=== PATIENT | male | born 1945 | race Caucasian/White ===

== ENCOUNTER 2021-09-03 22:31 | Emergency (ER) | payer MEDICARE, OTHER ==
[~2021-09-03] VITALS: Ht 190.5 cm; Wt 86.2 kg
--- NOTE | 2021-09-03 22:37 | PHYS DOC ---
Past History Past Medical History: Bronchitis, COPD Past Surgical History Facial Reconstruction- Skin lenny from chest General Adult EDM: Chief Complaint: SHORTNESS OF BREATH HPI: HPI: ".. We just moved up here from [place].. I ve had bronchitis.. COPD, and pneumonia before.. My grandson has Influ. A..." Patient is a 75 year old male who presents with above hx and complaints of dyspnea, cough, malaise, arthralgia, arthralgia, and shortness of breath. Patient has recently moved here from [place]. Patient has not gotten Covid vaccination. Patient has not gotten flu vaccination. Has not gotten a Pneumovax. Patient has had previous episodes of pneumonia and chronic bronchitis. Patient no longer smokes. Patient follows at [facility] for care. Pt has not smoked for years. Is exposed to Grandson who has Influ. A. Review of Systems: Review of Systems: Constitutional: Subjective fever or chills Eyes: Denies change in visual acuity HENT: Denies nasal congestion or sore throat Respiratory: Complaints of cough and wheezing Cardiovascular: Denies chest pain or edema GI: Denies abdominal pain, nausea, vomiting, bloody stools or diarrhea : Denies dysuria Musculoskeletal: Complaints of myalgia Integument: Denies rash Neurologic: Denies headache, focal weakness or sensory changes Endocrine: Denies polyuria or polydipsia Lymphatic: Denies swollen glands Psychiatric: Denies depression or anxiety Family History: Family History: Grandson has Influ. A Current Medications: Current Meds: See Nursing for Home meds Allergies: Allergies: No known drug allergies Physical Exam: PE: Constitutional: Moderate acute distress, non-toxic appearance. [] HENT: Normocephalic, old facial scars from recent reconstruction, bilateral external ears normal, oropharynx moist, no oral exudates, nose normal. [] Eyes: PERRLA, EOMI, conjunctiva normal, no discharge. [] Neck: Normal range of motion, no tenderness, supple, no stridor. [] Cardiovascular:Heart rate regular rhythm, no murmur [] PMI to left Lungs & Thorax: Bilateral breath sounds equal apex with scattered wheezes t hroughout on auscultation []. Chest wall scar from skin harvest Abdomen: Bowel sounds normal, soft, no tenderness, no masses, no pulsatile masses. [] Skin: Warm, dry, no erythema, no rash. Poor turgor Back: No tenderness, no CVA tenderness. [] Extremities: No tenderness, no cyanosis, no clubbing, ROM intact, no edema. Arthritic changes. No cording appreciated. Neurologic: Alert and oriented X 3, normal motor function, normal sensory function, no focal deficits noted. [] Psychologic: Affect normal, judgement normal, mood normal. [] EKG: EKG: My interpretation EKG shows sinus rhythm at 82 bpm. No acute morphology. Time of EKG is 2348 hrs. [] Radiology/Procedures: Radiology/Procedures: IMAGING REPORT Signed PATIENT: DARNELL STEARNS ACCOUNT: [id number] : 1945 LOCATION: ER AGE: 75 SEX: M EXAM STATUS: REG ER ORD. PHYSICIAN: DALLAS EVANS MD REASON: Chest pain, short of air PROCEDURE: CHEST PA & LATERAL EXAM: CHEST 2 VIEWS. HISTORY: Chest pain, shortness of breath. COMPARISON: Today's CT. FINDINGS: Frontal and lateral views of the chest are obtained. There are mild interstitial opacities in the left greater than right bases. Hyperinflation is consistent with chronic obstructive pulmonary disease. There is no pneumothorax or pleural effusion. The heart is not enlarged. IMPRESSION: 1. Refer to today's CT for description of a chronic atypical infectious process or aspiration. 2. Chronic obstructive pulmonary disease. Electronically signed by: Shahla Mike MD (09/04/2021 1:54 AM) [facility] DICTATED AND SIGNED BY: LUCY MIKE MD DATE: 09/04/21151 CC: DALLAS EVANS MD; PCP,NO ~MTH0 0 [][address] [address] IMAGING REPORT Signed PATIENT: DARNELL STEARNS ACCOUNT: [id number] : 1945 LOCATION: ER AGE: 75 SEX: M EXAM STATUS: REG ER ORD. PHYSICIAN: DALLAS EVANS MD REASON: Chest pain, short of air Omni 350 75cc PROCEDURE: CT ANGIOGRAPHY CHEST EXAM: CT ANGIOGRAPHY OF THE CHEST WITH AND WITHOUT CONTRAST. HISTORY: Chest pain, shortness of breath. TECHNIQUE: Computed tomographic angiography of the chest was performed before and after the intravenous administration of iodinated contrast. 3-D maximum intensity projections were also performed. One or more of the following individualized dose reduction techniques were utilized for this examination: 1. Automated exposure control. 2. Adjustment of the mA and/or kV according to patient size. 3. Use of iterative reconstruction technique. COMPARISON: None. FINDINGS: Images of the upper abdomen reveal a 10 mm cystic lesion within the pancreatic uncinate process. The pancreatic duct is dilated at 5 mm. No cause for distal obstruction is seen. The gallbladder is surgically absent. Diffuse hepatic steatosis is suspected. A 12 mm cyst in the left kidney appears benign. Bone windows reveal no suspicious lesions. No pulmonary emboli are identified. There is no aortic dissection or aneurysm. There are no pathologically enlarged mediastinal or axillary lymph nodes. There is no pleural or pericardial effusion. The heart is not enlarged. There are atherosclerotic calcifications of the coronary arteries. Mild nodular infiltrates in the bases may reflect aspiration or atypical pneumonia. There is a diffuse bronchial wall thickening. Centrilobular emphysema is moderate. There is pleural parenchymal scarring in the apices. There are lesser scattered nodular infiltrates in the upper lobes. IMPRESSION: 1. No pulmonary embolism. 2. Scattered nodular infiltrates may reflect aspiration or a chronic atypical infectious process. 3. Moderate centrilobular emphysema. Bronchial wall thickening is consistent with acute or chronic bronchitis. 4. 10 mm cystic lesion within the uncinate process suggesting an intraductal papillary mucinous neoplasm. MRCP with and without contrast could further evaluate if the diagnosis is not already known. 5. Diffuse hepatic steatosis Electronically signed by: Shahla Mike MD (09/04/2021 1:52 AM) [facility] DICTATED AND SIGNED BY: LUCY MIKE MD DATE: 09/04/21 014 CC: DALLAS EVANS MD; PCP,NO ~MTH0 0 Heart Score: C/O Chest Pain: No HEART Score for Chest Pain: HEART Score for Chest Pain Response (Comments) Value History Slighlty/Non-Suspicious 0 ECG Normal 0 Age > 65 2 Risk Factors 1 or 2 Risk Factors 1 Troponin < Normal Limit 0 Total 3 Risk Factors: Risk Factors: DM, Current or recent (<one month) smoker, HTN, HLP, family history of CAD, obesity. Risk Scores: Score 0 - 3: 2.5% MACE over next 6 weeks - Discharge Home Score 4 - 6: 20.3% MACE over next 6 weeks - Admit for Clinical Observation Score 7 - 10: 72.7% MACE over next 6 weeks - Early Invasive Strategies Course & Med Decision Making: Course & Med Decision Making Pertinent Labs and Imaging studies reviewed. (See chart for details) Patient use MDI 2 puffs 4 times a day. Take prednisone 50 mg a day for the next 5 days. Taking Zithromax 250 mg daily for the next 5 days. Use incentive sp irometry. Follow-up with primary care. Follow-up with pulmonary for right upper lobe lesion. Patient take Tamiflu 75 mg twice a day. Impression: 1. Emphysema/COPD exacerbation 2. Right upper lobe cystic lesion- Neoplasm? 3. Influenza A 4. Hyperkalemia potassium 5.4 5. Leukocytosis 13 6. Mild elevation D-dimer 0.88 [] Dragon Disclaimer: Dragon Disclaimer: This electronic medical record was generated, in whole or in part, using a voice recognition dictation system. Departure Departure: Referrals: PCP,NO (PCP) Scripts Oseltamivir Phosphate (TAMIFLU) 75 Mg Capsule 75 MG PO BID for bid for 5 Days, #10 CAP Prov: DALLAS EVANS MD 09/04/21 Azithromycin (ZITHROMAX) 250 Mg Tablet 250 MG PO DAILY for ANTI-BIOTIC for 5 Days, #5 TAB 0 Refills Prov: DALLAS EVANS MD 09/04/21 Prednisone (PREDNISONE) 50 Mg Tablet 50 MG PO DAILY for copd for 5 Days, #5 TAB Prov: DALLAS EVANS MD 09/04/21 Dragon Disclaimer This chart was dictated in whole or in part using Voice Recognition software in a busy, high-work load, and often noisy Emergency Department environment. It may contain unintended and wholly unrecognized errors or omissions. DALLAS EVANS MD Sep 03, 2021 22:37
[2021-09-03] MEDS ORDERED: ALBUTEROL SULFATE 8GM INHALER. INH ONE (23:00)
[2021-09-03] MEDS ORDERED: AZITHROMYCIN 250 MG TABLET. PO ONE (23:00)
[2021-09-03] MEDS ORDERED: methylPREDNISolone SOD SUCC PF 125 MG/2 ML VIAL. IV ONE (23:00)
[2021-09-03] MEDS ORDERED: IV RINGERS SOLUTION,LACTATED 1,000 ML IV SCH (23:00)
[2021-09-03] MEDS ORDERED: IOHEXOL 350 MG/ML 100 ML VIAL. IV ONE (23:15)
[2021-09-03] MEDS ORDERED: CONTRAST GIVEN. MC PRN (23:15)
[2021-09-03] MEDS ORDERED: IV NORMAL SALINE 50ML 50 ML ONE (23:41)
[2021-09-03] MEDS ORDERED: cefTRIAXone SODIUM 1 GM VIAL ONE (23:41)
[2021-09-03] MEDS ORDERED: OSELTAMIVIR 75 MG CAPSULE PO ONE (23:45)
[2021-09-03 23:46] LABS: BASO # 0.1 x10^3/uL (0.0-0.2); BASO % 1 % (0-3); EOS # 0.1 x10^3/uL (0.0-0.7); EOS % 1 % (0-3); HEMATOCRIT 43.8 % (39.0-53.0); HEMOGLOBIN 14.2 g/dL (13.0-17.5); LYMPH # 1.1 x10^3/uL (1.0-4.8); LYMPH % 9 % (24-48); MEAN CORPUSCULAR HEMOGLOBIN 29 pg (25-35); MEAN CORPUSCULAR HGB CONC 32 g/dL (31-37); MEAN CORPUSCULAR VOLUME 88 fL (79-100); MONO # 1.7 x10^3/uL (0.0-1.1); MONO % 13 % (0-9); NEUT % 77 % (31-73); PLATELET COUNT 205 x10^3/uL (140-400); RED BLOOD COUNT 4.99 x10^6/uL (4.30-5.70); RED CELL DISTRIBUTION WIDTH 14.6 % (11.5-14.5)
[2021-09-03 23:58] LABS: BACTERIA,URINE FEW /HPF (0-FEW); BILIRUBIN,URINE NEG (NEG); CLARITY,URINE CLEAR; COLOR,URINE YELLOW; GLUCOSE,URINE NEG (NEG); NITRITE,URINE NEG (NEG); RBC,URINE 0 /HPF (0-2); SQUAMOUS EPITHELIAL CELL,UR MOD /LPF; UROBILINOGEN,URINE 0.2 mg/dL (0.2 mg/dL)
[2021-09-03 23:59] LABS: CREATININE 1.4 mg/dL (0.7-1.3); GFR 49.1; POTASSIUM 5.4 mmol/L (3.5-5.1)
[2021-09-04 00:11] LABS: ALBUMIN 3.4 g/dL (3.4-5.0); ALBUMIN/GLOBULIN RATIO 1.1 (1.0-1.7); DIRECT BILIRUBIN 0.1 mg/dL (0.0-0.2); TOTAL BILIRUBIN 0.3 mg/dL (0.2-1.0); TOTAL PROTEIN 6.6 g/dL (6.4-8.2)
[2021-09-04 00:59] LABS: INFLUENZA B PATIENT NEGATIVE (NEGATIVE)
[2021-09-04 01:03] LABS: INFLUENZA A PATIENT POSITIVE (NEGATIVE)
[2021-09-04 01:11] VITALS: BP 112/83
--- NOTE | 2021-09-04 01:55 | RAD ---
EXAM: CT ANGIOGRAPHY OF THE CHEST WITH AND WITHOUT CONTRAST. HISTORY: Chest pain, shortness of breath. TECHNIQUE: Computed tomographic angiography of the chest was performed before and after the intraveno us administration of iodinated contrast. 3-D maximum intensity projections were also performed. One o r more of the following individualized dose reduction techniques were utilized for this examination: 1. Automated exposure control. 2. Adjustment of the mA and/or kV according to patient size. 3. Use of iterative reconstruction technique. COMPARISON: None. FINDINGS: Images of the upper abdomen reveal a 10 mm cystic lesion within the pancreatic uncinate pro cess. The pancreatic duct is dilated at 5 mm. No cause for distal obstruction is seen. The gallbladde r is surgically absent. Diffuse hepatic steatosis is suspected. A 12 mm cyst in the left kidney appea rs benign. Bone windows reveal no suspicious lesions. No pulmonary emboli are identified. There is no aortic dissection or aneurysm. There are no pathologically enlarged mediastinal or axillary lymph nodes. There is no pleural or mat cardial effusion. The heart is not enlarged. There are atherosclerotic calcifications of the coronary arteries. Mild nodular infiltrates in the bases may reflect aspiration or atypical pneumonia. There is a diffus e bronchial wall thickening. Centrilobular emphysema is moderate. There is pleural parenchymal scarri ng in the apices. There are lesser scattered nodular infiltrates in the upper lobes. IMPRESSION: 1. No pulmonary embolism. 2. Scattered nodular infiltrates may reflect aspiration or a chronic atypical infectious process. 3. Moderate centrilobular emphysema. Bronchial wall thickening is consistent with acute or chronic br onchitis. 4. 10 mm cystic lesion within the uncinate process suggesting an intraductal papillary mucinous neopl asm. MRCP with and without contrast could further evaluate if the diagnosis is not already known. 5. Diffuse hepatic steatosis Electronically signed by: Shahla Mike MD (09/04/2021 1:52 AM) [facility]
--- NOTE | 2021-09-04 01:56 | RAD ---
EXAM: CHEST 2 VIEWS. HISTORY: Chest pain, shortness of breath. COMPARISON: Today's CT. FINDINGS: Frontal and lateral views of the chest are obtained. There are mild interstitial opacities in the left greater than right bases. Hyperinflation is consist ent with chronic obstructive pulmonary disease. There is no pneumothorax or pleural effusion. The hea rt is not enlarged. IMPRESSION: 1. Refer to today's CT for description of a chronic atypical infectious process or aspiration. 2. Chronic obstructive pulmonary disease. Electronically signed by: Shahla Mike MD (09/04/2021 1:54 AM) [facility]
[2021-09-04] MEDS ORDERED: PRED50TA PO (02:41)
[2021-09-04] MEDS ORDERED: AZIT250T PO (02:41)
[2021-09-04] MEDS ORDERED: OSEL75CA PO (02:41)
--- NOTE | 2021-09-04 02:42 | EKG ---
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
== END 2021-09-04 03:09 | disposition home or self-care (01) ==
LOC: ER 22:31
DX: J44.1 Chronic obstructive pulmonary disease with (acute) exacerbation (principal); J98.4 Other disorders of lung; J10.1 Influenza due to other identified influenza virus with other respiratory manifestations; E87.5 Hyperkalemia; D72.829 Elevated white blood cell count, unspecified; R79.1 Abnormal coagulation profile; Z20.822 Contact with and (suspected) exposure to COVID-19
CPT/HCPCS: 71046; 71275; 80048; 80053; 80076; 81001; 82550; 83690; 83735; 83880; 84443; 84484; 85025; 85379; 85610; 85730; 87426; 87804; 93005; 94640; 96361; 96365; 96375; 99285; C9803; J0696; J2930; J7120; Q9967; U0003; 94664

== ENCOUNTER 2021-10-15 17:22 | Emergency (ER) | payer MEDICARE, OTHER ==
[~2021-10-15] VITALS: Ht 190.5 cm; Wt 86.0 kg
[~2021-10-15 17:22] MED LIST: AZIT250T PO; OSEL75CA PO; PRED50TA PO
[2021-10-15 17:29] VITALS: BP 153/79
--- NOTE | 2021-10-15 19:29 | RAD ---
XR CHEST 1V History: Reason: COPD, mucus increase, tightness in neck / Spl. Instructions: / History: Comparison: September 04, 2021 Findings: Hyperinflation. Mild reticular opacities bilaterally. No pleural effusion. No pneumothorax. Normal he art size. Impression: 1. Hyperinflation with mild reticular opacities, most likely chronic interstitial changes. Electronically signed by: James Starr DO (10/15/2021 7:27 PM) [facility]
[2021-10-15 19:37] LABS: INFLUENZA A PATIENT NEGATIVE (NEGATIVE); INFLUENZA B PATIENT NEGATIVE (NEGATIVE)
[2021-10-15] MEDS ORDERED: AZIT250T6 PO (19:40)
--- NOTE | 2021-10-15 19:41 | PHYS DOC ---
Past History Past Medical History: Bronchitis, COPD Additional Past Medical Histor: bladder cancer s/p resection (MARCOS URBAN) Past Surgical History: Cancer Surgery Additional Past Surgical Histo: partial cystectomy (MARCOS URBAN) Smoking: Quit Greater Than 1 Year Alcohol Use: None (MARCOS URBAN) General Adult EDM: Chief Complaint: OTHER COMPLAINTS HPI: HPI: Patient is a 76 year old male past medical history of COPD and bladder cancer status post partial cystectomy who presents with increased mucus that he feels is "stuck in his throat." Patient reports he used some Vicks nasal spray to help with nasal congestion, and almost immediately after felt something "drip in the back of his throat." Since that time, he feels like he has "a ball of phlegm or a booger" lodged in his throat. He states that coughing helps for a little bit, but the sensation comes back. Patient denies sore throat and shortness of breath. (MARCOS URBAN) Review of Systems: Review of Systems: Constitutional: Denies fever, chills or generalized weakness Eyes: Denies change in visual acuity, visual field deficits or discharge HENT: See HPI Respiratory: See HPI Cardiovascular: Denies chest pain, palpitations or edema GI: Denies abdominal pain, nausea, vomiting, bloody stools or diarrhea : Denies dysuria or hematuria Musculoskeletal: Denies back pain or joint pain Integument: Denies rash or other skin lesion Neurologic: Denies headache, focal weakness or sensory changes (MARCOS URBAN) Allergies: Allergies: Allergies Coded Allergies Type Severity Reaction Last Updated Verified No Known Drug Allergies 09/03/21 No (MARCOS URBAN) Physical Exam: PE: Constitutional: Well developed, well nourished, no acute distress, chronically ill appearance. HENT: Normocephalic, atraumatic, bilateral external ears normal, oropharynx moist, no oral exudates, no pharyngeal erythema, nose normal. Eyes: EOMI, conjunctiva normal, no discharge. Neck: Normal range of motion, no tenderness, supple, no stridor. Cardiovascular: Heart regular rate and rhythm. Lungs & Thorax: Bilateral breath sounds clear to auscultation, but diminished throughout. Skin: Warm, dry, no erythema, no rash, no cyanosis. Neurologic: Alert and oriented x4, no focal deficits noted. (MARCOS URBAN) Current Patient Data: Labs: Laboratory Tests Test 10/15/21 18:55 Influenza Type A (Rapid) Negative (NEGATIVE) Influenza Type B (Rapid) Negative (NEGATIVE) Vital Signs: Vital Signs Date Time Temp Pulse Resp B/P (MAP) Pulse Ox O2 Delivery O2 Flow Rate FiO2 10/15/21 17:29 97.7 80 18 153/79 (103) 98 Room Air (MARCOS URBAN) Radiology/Procedures: Radiology/Procedures: PROCEDURE: CHEST AP ONLY XR CHEST 1V History: Reason: COPD, mucus increase, tightness in neck / Spl. Instructions: / History: Comparison: September 04, 2021 Findings: Hyperinflation. Mild reticular opacities bilaterally. No pleural effusion. No pneumothorax. Normal heart size. Impression: 1. Hyperinflation with mild reticular opacities, most likely chronic interstitial changes. Electronically signed by: James Starr DO (10/15/2021 7:27 PM) [facility]DY (MARCOS URBAN) Heart Score: C/O Chest Pain: No (MARCOS URBAN) Course & Med Decision Making: Course & Med Decision Making Pertinent Labs and Imaging studies reviewed. (See chart for details) Patient is a 76-year-old male past medical history COPD who presents with nasal congestion and increased mucus, that he feels is stuck in his throat. Work-up will include a chest x-ray and influenza a and B swab. Patient refuses influenza a and B swab, stating "I know I don't have it." Test was deferred. Patient will be treated with dexamethasone, Z-Macario and instructed to use Mucinex at home. Patient asked if he could continue using nasal spray, which likely will help his congestion. All of his questions were answered. Return precautions were provided. Patient understands and is agreeable to discharge plan. (MARCOS URBAN) Course & Med Decision Making Did not see or evaluate patient. Did not discuss patient with PA. Agree with PAs work-up and disposition per note. (YANIRA MADERA MD) Dragon Disclaimer: Dragon Disclaimer: This electronic medical record was generated, in whole or in part, using a voice recognition dictation system. (MARCOS URBAN) Departure Departure: Impression: Primary Impression: Upper respiratory infection Qualified Codes: J00 - Acute nasopharyngitis [common cold] Additional Impression: COPD (chronic obstructive pulmonary disease) Qualified Codes: J44.1 - Chronic obstructive pulmonary disease with (acute) exacerbation Disposition: HOME / SELF CARE / HOMELESS Condition: IMPROVED Referrals: NOAH MAYER MD (PCP) Patient Instructions: Chronic Obstructive Pulmonary Disease, [id number] Additional Instructions: EMERGENCY DEPARTMENT GENERAL DISCHARGE INSTRUCTIONS Thank you for coming to [facility] (ED) today and trusting us with you care. We trust that you had a positive experience in our Emergency Department. If you wish to speak to the department management, you may call the director at [phone]. YOUR FOLLOW UP INSTRUCTIONS ARE FOLLOWS: 1. Follow up with your primary care doctor. If you do not have a primary doctor, please ask for a resource list of physicians or clinics that may be able to assist you with follow up care. 2. The emergency provider has interpreted your imaging studies, if any were ordered. The radiology clinical documentation specialist also reviewed them. If there is a change in the findings, you will be notified in 48 hours when at all possible. 3. If a lab test or culture has been done, your results will be reviewed and you will be notified if you need a change in treatment. 4. Follow instructions verbalized to you and refer to the printouts if needed. ADDITIONAL INSTRUCTIONS AND INFORMATION: 1. Your care today has been supervised by a physician who is specially trained in emergency care. Many problems require more than one evaluation for a complete diagnosis and treatment. We recommend that you schedule your follow up appointment as recommended to ensure complete treatment of you illness or injury. If you are unable to obtain follow up care and continue to have a problem, or if your condition worsens, we recommend that you return to the ED. 2. We are not able to safely determine your condition over the phone nor are we able to give sound medical advice over the phone. For these safety reasons, if you call for medical advice we will ask you to come to the ED for further evaluation. 3. If you have any questions regarding these discharge instructions please call the ED at [phone]. SAFETY INFORMATION: In the interest of safety, wellness, and injury prevention; we encourage you to wear your seat belt, if you smoke; quite smoking, and we encourage family to use a protective helmet for bicycling and other sporting events that present an increased risk for head injury. IF YOUR SYMPTOMS WORSEN OR NEW SYMPTOMS DEVELOP, OR YOU HAVE CONCERNS ABOUT YOUR CONDITION; OR IF YOUR CONDITION WORSENS WHILE YOU ARE WAITING FOR YOUR FOLLOW UP APPOINTMENT; EITHER CONTACT YOUR PRIMARY CARE DOCTOR, THE PHYSICIAN WHOSE NAME AND NUMBER YOU WERE GIVEN, OR RETURN TO THE ED IMMEDIATELY. Scripts Azithromycin (AZITHROMYCIN TABLET) 250 Mg Tablet 1 PKG PO DAILY for COPD exacerbation for 4 Days, #4 TAB 0 Refills 2 the first day followed by 1 for days 2-5 Prov: MARCOS URBAN 10/15/21 MARCOS URBAN Oct 15, 2021 19:41 YANIRA MADERA MD Oct 15, 2021 21:21
[2021-10-15] MEDS ORDERED: AZITHROMYCIN 250 MG TABLET. PO ONE (19:45)
[2021-10-15] MEDS ORDERED: DEXAMETHASONE 4 MG TABLET PO ONE (19:45)
== END 2021-10-15 20:10 | disposition home or self-care (01) ==
LOC: ER 17:22
DX: J44.1 Chronic obstructive pulmonary disease with (acute) exacerbation (principal); J00 Acute nasopharyngitis [common cold]; Z87.891 Personal history of nicotine dependence
CPT/HCPCS: 71045; 87428; 87804; 99284

== ENCOUNTER 2021-12-22 12:35 | Inpatient (IN) | payer MEDICARE, OTHER ==
[~2021-12-22] VITALS: Ht 190.5 cm; Wt 83.7 kg
[~2021-12-22 12:35] MED LIST changes: +AZIT250T6 PO
[2021-12-22 13:13] LABS: BACTERIA,URINE 0 /HPF (0-FEW); BARBITURATES NEG (NEG); BENZODIAZEPINES NEG (NEG); CANNABINOIDS NEG (NEG); CLARITY,URINE CLEAR; COCAINE NEG (NEG); COLOR,URINE YELLOW; GLUCOSE,URINE NEG (NEG); METHADONE NEG (NEG); NITRITE,URINE NEG (NEG); OPIATES NEG (NEG); PHENCYCLIDINE NEG (NEG); RBC,URINE 0 /HPF (0-2); UROBILINOGEN,URINE 0.2 mg/dL (0.2 mg/dL); WBC,URINE 0 /HPF (0-4)
[2021-12-22 13:14] LABS: AMPHETAMINE/METHAMPHETAMINE NEG (NEG)
[2021-12-22] MEDS ORDERED: IOHEXOL 350 MG/ML 100 ML VIAL. IV ONE ×2 (13:15→14:15)
[2021-12-22 13:20] LABS: BASO # 0.2 x10^3/uL (0.0-0.2); BASO % 2 % (0-3); EOS # 0.4 x10^3/uL (0.0-0.7); EOS % 5 % (0-3); HEMATOCRIT 43.4 % (39.0-53.0); HEMOGLOBIN 14.3 g/dL (13.0-17.5); LYMPH # 1.3 x10^3/uL (1.0-4.8); LYMPH % 15 % (24-48); MEAN CORPUSCULAR HEMOGLOBIN 29 pg (25-35); MEAN CORPUSCULAR HGB CONC 33 g/dL (31-37); MEAN CORPUSCULAR VOLUME 88 fL (79-100); MONO # 0.7 x10^3/uL (0.0-1.1); MONO % 9 % (0-9); NEUT % 70 % (31-73); PLATELET COUNT 211 x10^3/uL (140-400); RED BLOOD COUNT 4.93 x10^6/uL (4.30-5.70); WHITE BLOOD COUNT 8.5 x10^3/uL (4.0-11.0)
--- NOTE | 2021-12-22 13:21 | PHYS DOC ---
Past History Past Medical History: Bronchitis, COPD Additional Past Medical Histor: bladder cancer s/p resection (TARA BERRY APRN) Past Surgical History: Cancer Surgery Additional Past Surgical Histo: partial cystectomy (TARA BERRY APRN) Smoking: Quit Greater Than 1 Year Alcohol Use: None (TARA BERRY APRN) General Adult EDM: Chief Complaint: SYNCOPE HPI: HPI: Patient is a 76-year-old male who presents to the emergency department via EMS for near syncope. Patient reports that today he got up from sitting started to feel lightheaded and felt like he almost passed out. Patient denies any loss of consciousness. He reports that the dizziness lasted for approximately 5 to 10 minutes and then resolved. He reports that at that time he had some trouble finding words that lasted 5 minutes but resolved. He reports a chronic headache that is on the right frontal and occipital region. He states that he had imaging performed and they attributed his chronic headaches due to bone spurs on his neck. Patient is not having any lightheadedness currently. He denies shortness of breath, chest pain, nausea, vomiting. He reports he has chronic right eye blurring. He has history of hyperlipidemia, anxiety, A. fib, emphysema, TBI and GERD. Patient does not take any blood thinners for his A. fib. (TARA BERRY APRN) Review of Systems: Review of Systems: Respiratory: See HPI Cardiovascular: See HPI GI: See HPI Musculoskeletal: See HPI Neurologic: See HPI (TARA BERRY APRN) Current Medications: Current Meds: Current Medications Medications (Trade) Dose Ordered Sig/Suzette Start Time Stop Time Status Last Admin Dose Admin Iohexol (Omnipaque 350 Mg/ml) 100 ml 1X ONCE 12/22/21 13:15 12/22/21 13:16 (TARA BERRY APRN) Allergies: Allergies: Allergies Coded Allergies Type Severity Reaction Last Updated Verified No Known Drug Allergies 09/03/21 No (TARA BERRY APRN) Physical Exam: PE: Constitutional: Well developed, well nourished, no acute distress, non-toxic appearance. [] HENT: Normocephalic, atraumatic, bilateral external ears normal, oropharynx moist, no oral exudates, nose normal. [] Eyes: PERRL, 4 mm bilaterally, no horizontal nystagmus, EOMI, conjunctiva normal, no discharge. [] Neck: Normal range of motion, no tenderness, supple, no stridor. [] Cardiovascular:Heart rate regular rhythm, no murmur [] Lungs & Thorax: Bilateral breath sounds clear to auscultation [] Abdomen: Bowel sounds normal, soft, no tenderness, no masses, no pulsatile masses. [] Skin: Warm, dry, no erythema, no rash. [] Back: No tenderness, normal range of motion Extremities: No tenderness, no cyanosis, no clubbing, ROM intact, no edema. [] Neurologic: Alert and oriented X 3, normal motor function, normal sensory function, no focal deficits noted, patient moving all 4 extremities, no pronator drift, no limb ataxia, no slurred speech, no facial droop. [] Psychologic: Affect normal, judgement normal, mood normal. [] (TARA BERRY APRN) Current Patient Data: Labs: Laboratory Tests Test 12/22/21 12:45 Urine Collection Type Clean catch Urine Color Yellow Urine Clarity Clear Urine pH 6.0 Urine Specific [place] 1.010 Urine Protein Neg (NEG-TRACE) Urine Glucose (UA) Neg mg/dL (NEG) Urine Ketones (Stick) Neg mg/dL (NEG) Urine Blood Neg (NEG) Urine Nitrite Neg (NEG) Urine Bilirubin Neg (NEG) Urine Urobilinogen Dipstick 0.2 mg/dL (0.2 mg/dL) Urine Leukocyte Esterase Neg (NEG) Urine RBC 0 /HPF (0-2) Urine WBC 0 /HPF (0-4) Urine Squamous Epithelial Cells None /LPF Urine Bacteria 0 /HPF (0-FEW) Urine Opiates Screen Neg (NEG) Urine Methadone Screen Neg (NEG) Urine Barbiturates Neg (NEG) Urine Phencyclidine Screen Neg (NEG) Urine Amphetamine/Methamphetamine Neg (NEG) Urine Benzodiazepines Screen Neg (NEG) Urine Cocaine Screen Neg (NEG) Urine Cannabinoids Screen Neg (NEG) Urine Ethyl Alcohol Neg (NEG) Vital Signs: Vital Signs Date Time Temp Pulse Resp B/P (MAP) Pulse Ox O2 Delivery O2 Flow Rate FiO2 12/22/21 12:39 97.6 67 17 120/84 (96) 98 Room Air (TARA BERRY APRN) EKG: EKG: EKG performed by ER staff at 1250 shows sinus rhythm with a rate of 62, there is elevation in lead II and lead III which is comparable to previous EKG. EKG was examined by Dr. Padgett reported that he has early repolarization. No STEMI (TARA BERRY APRN) Radiology/Procedures: Radiology/Procedures: []STATUS: REG ERORD. PHYSICIAN: TARA BERRY APRN REASON: syncope PROCEDURE: CT HEAD WO CONTRAST CT HEAD INDICATION: Reason: syncope / Spl. Instructions: / History: COMPARISON: None Available. Exposure: One or more of the following individualized dose reduction techniques were utilized for this examination: 1. Automated exposure control 2. Adjustment of the mA and/or kV according to patient size 3. Use of iterative reconstruction technique TECHNIQUE: 5 mm contiguous axial images were obtained from the skull base to the vertex in both bone and soft tissue algorithm. FINDINGS: No abnormal attenuation within the brain parenchyma. No evidence of acute intracranial hemorrhage. No extra-axial fluid collections. No mass effect or midline shift. Ventricular size is appropriate. Basal ci sterns are patent. No fractures identified.Sanchez-white differentiation is preserved.Globes and orbits are within normal limits. Paranasal sinuses and mastoid air cells are clear. IMPRESSION: No acute intracranial findings. Electronically signed by: Luigi Moreno MD (12/22/2021 2:43 PM) [id number] DICTATED AND SIGNED BY: LUIGI MORENO MD DATE: 12/22/211436 CC: NOAH MAYER MD; TARA BERRY APRN; KAYLI SALVADOR REASON: SOA NEAR SYNCOPE GIVEN 75 ML OMNI 350 PROCEDURE: CT ANGIOGRAPHY CHEST CTA CHEST History: Short of air, near syncope. Comparison: CTA chest 09/03/2021 Technique: CTA of the pulmonary arteries with intravenous contrast. 3-D postprocessing was performed. Findings: Pulmonary arteries: No pulmonary embolism. Aorta and great vessels: No aneurysm or dissection of the aortic arch or thoracic aorta. Mild atherosclerotic calcification. Thyroid: No significant abnormalities. Mediastinum and christiano: No mediastinal masses or adenopathy is seen. Esophagus: The visualized esophagus is normal. Heart: The heart is normal in size. There is no pericardial effusion. Moderate coronary artery calcification. Airways, Lungs, Pleura: Bilateral apical pleural-parenchymal scarring unchanged. Multifocal tree-in-bud nodular opacities involving the bilateral lower lobes, right middle and bilateral upper lobes, similar to comparison. New nodule left upper lobe measuring 6 mm (axial 50). Emphysematous change and bronchial wall thickening similar to comparison. Upper abdomen: Previously described pancreatic uncinate cystic mass is not included in the [id number]. Surgical clips in the gallbladder fossa. Osseous structures and soft tissues: Bilateral shoulder degenerative changes. He aled left lateral rib fractures. Impression: 1. No pulmonary embolism. 2. New pulmonary nodule measuring 6 mm in the left upper lobe. Recommend follow-up according to 2017 Fleischner Society Guidelines for solid pulmonary nodules: 6-8 mm: In a low risk patient, CT at 6-12 months, then consider CT at 18-24 months. In a high risk patient (history of smoking or other known risk f actors), CT at 6-[address] at 18-24 months. 3. Redemonstrated panlobular nodular tree-in-bud opacities greatest at the right lower lobe likely represents chronic infectious or inflammatory process. 4. Findings compatible with COPD. ------ Exposure: One or more of the following individualized dose reduction techniques were utilized for this examination: 1. Automated exposure control 2. Adjustment of the mA and/or kV according to patient size 3. Use of iterative reconstruction technique. Electronically signed by: Eusebio Amado MD (12/22/2021 3:19 PM) [id number] DICTATED AND SIGNED BY: EUSEBIO AMADO MD DATE: 12/22/21 1510 CC: NOAH MAYER MD; TARA BERRY APRN; KAYLI SALVADOR DO ~ (TARA BERRY APRN) Heart Score: C/O Chest Pain: No Risk Factors: Risk Factors: DM, Current or recent (<one month) smoker, HTN, HLP, family history of CAD, obesity. Risk Scores: Score 0 - 3: 2.5% MACE over next 6 weeks - Discharge Home Score 4 - 6: 20.3% MACE over next 6 weeks - Admit for Clinical Observation Score 7 - 10: 72.7% MACE over next 6 weeks - Early Invasive Strategies (TARA BERRY APRN) Course & Med Decision Making: Course & Med Decision Making Pertinent Labs and Imaging studies reviewed. (See chart for details) [] Patient presents to the emergency department first possible syncopal episode. Patient is asymptomatic at this time. Work-up in the ER consisted of blood work including troponin and coags, UA with UDS CT imaging of head to rule out CVA and CT angio of chest as patient is complaining of syncope and on A. fib without any anticoagulation to rule out pulmonary embolism. Patient's lab work is unremarkable. He had a negative troponin and serial troponins were ordered. UA and UDS were negative. CT imaging of head showed no acute finding CT imaging of chest showed COPD changes. I would like to admit the patient for observation and neurology consultation as well as serial troponins. I discussed patient's case with Dr. Broussard who agreed to admit the patient under his services for syncope. I discussed findings with patient he is agreeable to admission. ER bridge orders placed at this time 1544. (TARA BERRY APRN) Dragon Disclaimer: Dragon Disclaimer: This electronic medical record was generated, in whole or in part, using a voice recognition dictation system. (TARA BERRY APRN) NIH Stroke Scale: NIH Stroke Scale Response (Comments) Value Level of Consciousness: 0 Alert/Responsive 0 LOC Questions: 0 Answers both correctly 0 LOC Commands: 0 Performs both tasks 0 Best Gaze: 0 Normal 0 Visual: 0 No visual loss 0 Facial Palsy: 0 Normal, symmetrical 0 Motor - Left Arm 0 No drift 0 Motor - Right Arm 0 No drift 0 Motor - Left Leg 0 No drift 0 Motor: Right Leg 0 No drift 0 Limb Ataxia: 0 Absent 0 Sensory: 0 No loss 0 Best Language: 0 Normal 0 Dysathria: 0 Normal 0 Total 0 Departure Departure: Impression: Primary Impression: Syncope Qualified Codes: R55 - Syncope and collapse Disposition: ADMITTED INPATIENT Admitting Physician: Vic Duffy (TARA BERRY APRN) Condition: GOOD Referrals: NOAH MAYER MD (PCP) Attending Signature Attending Signature I have reviewed the PA/RESPIRATORY THERAPY ASSISTANT's note and plan of care. I was available for consultation as needed during the patient's visit in the emergency department. I agree with the clinical impression, plan, and disposition. (KAYLI SALVADOR DO) TARA BERRY APRN Dec 22, 2021 13:21 KAYLI SALVADOR DO Dec 23, 2021 10:47
[2021-12-22 14:09] LABS: CALCIUM 9.5 mg/dL (8.5-10.1); CREATININE 1.3 mg/dL (0.7-1.3); GFR 53.4; POTASSIUM 4.5 mmol/L (3.5-5.1)
[2021-12-22 14:15] LABS: ALBUMIN 3.7 g/dL (3.4-5.0); ALBUMIN/GLOBULIN RATIO 1.2 (1.0-1.7); TOTAL BILIRUBIN 0.5 mg/dL (0.2-1.0); TOTAL PROTEIN 6.9 g/dL (6.4-8.2)
[2021-12-22] MEDS ORDERED: CONTRAST GIVEN. MC PRN (14:30)
--- NOTE | 2021-12-22 14:46 | RAD ---
CT HEAD INDICATION: Reason: syncope / Spl. Instructions: / History: COMPARISON: None Available. Exposure: One or more of the following individualized dose reduction techniques were utilized for thi s examination: 1. Automated exposure control 2. Adjustment of the mA and/or kV according to patient size 3. Use of iterative reconstruction technique TECHNIQUE: 5 mm contiguous axial images were obtained from the skull base to the vertex in both bone and soft tissue algorithm. FINDINGS: No abnormal attenuation within the brain parenchyma. No evidence of acute intracranial hemorrhage. No extra-axial fluid collections. No mass effect or midline shift. Ventricular size is appropriate. Basal cisterns are patent. No fractures identified.Sanchez-white differentiation is preserved.Globes and orbits are within normal l imits. Paranasal sinuses and mastoid air cells are clear. IMPRESSION: No acute intracranial findings. Electronically signed by: Luigi Moreno MD (12/22/2021 2:43 PM) [id number]
--- NOTE | 2021-12-22 15:22 | RAD ---
CTA CHEST History: Short of air, near syncope. Comparison: CTA chest 09/03/2021 Technique: CTA of the pulmonary arteries with intravenous contrast. 3-D postprocessing was performed. Findings: Pulmonary arteries: No pulmonary embolism. Aorta and great vessels: No aneurysm or dissection of the aortic arch or thoracic aorta. Mild atheros clerotic calcification. Thyroid: No significant abnormalities. Mediastinum and christiano: No mediastinal masses or adenopathy is seen. Esophagus: The visualized esophagus is normal. Heart: The heart is normal in size. There is no pericardial effusion. Moderate coronary artery calcif ication. Airways, Lungs, Pleura: Bilateral apical pleural-parenchymal scarring unchanged. Multifocal tree-in-b ud nodular opacities involving the bilateral lower lobes, right middle and bilateral upper lobes, sim ilar to comparison. New nodule left upper lobe measuring 6 mm (axial 50). Emphysematous change and br onchial wall thickening similar to comparison. Upper abdomen: Previously described pancreatic uncinate cystic mass is not included in the field-of-v iew. Surgical clips in the gallbladder fossa. Osseous structures and soft tissues: Bilateral shoulder degenerative changes. Healed left lateral rib fractures. Impression: 1. No pulmonary embolism. 2. New pulmonary nodule measuring 6 mm in the left upper lobe. Recommend follow-up according to 2017 Fleischner Society Guidelines for solid pulmonary nodules: 6-8 mm: In a low risk patient, CT at 6-12 months, then consider CT at 18-24 months. In a high risk patient (history of smoking or other known risk factors), CT at 6-[address] at 18-24 months. 3. Redemonstrated panlobular nodular tree-in-bud opacities greatest at the right lower lobe likely r epresents chronic infectious or inflammatory process. 4. Findings compatible with COPD. ------ Exposure: One or more of the following individualized dose reduction techniques were utilized for thi s examination: 1. Automated exposure control 2. Adjustment of the mA and/or kV according to patient size 3. Use of iterative reconstruction technique. Electronically signed by: Eusebio Bautista MD (12/22/2021 3:19 PM) [id number]
--- NOTE | 2021-12-22 19:29 | EKG ---
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
[2021-12-22 19:30] VITALS: BP 131/80
[2021-12-22] MEDS ORDERED: NON FORMULARY ITEM (Ipratropium/Albuterol Sulfate (Combivent Respimat Inhal) 1 PUFF) INH SCH (21:00)
[2021-12-22] MEDS ORDERED: GUAI12003 PO (21:02)
[2021-12-22] MEDS ORDERED: BUSP10TA PO (21:02)
[2021-12-22] MEDS ORDERED: METH-560 PO (21:02)
[2021-12-22] MEDS ORDERED: ASPI-630 PO (21:02)
[2021-12-22] MEDS ORDERED: PANT40TA6 PO (21:02)
[2021-12-22] MEDS ORDERED: ATOR10TA60 PO (21:02)
[2021-12-22] MEDS ORDERED: MELO15TA23 PO (21:02)
[2021-12-22] MEDS ORDERED: MONT10TA80 PO (21:02)
[2021-12-22] MEDS ORDERED: FURO40TA4 PO (21:02)
[2021-12-22] MEDS ORDERED: DOCU100T5 PO (21:02)
[2021-12-22] MEDS ORDERED: METO-239 PO (21:02)
[2021-12-22] MEDS ORDERED: IPRA0.2S5 NEB (21:02)
[2021-12-22] MEDS ORDERED: FLUT50DI IH (21:02)
[2021-12-22] MEDS ORDERED: IPRA4AER INH (21:02)
[2021-12-22] MEDS ORDERED: CETI10TA16 PO (21:02)
[2021-12-22] MEDS: PANTOPRAZOLE 40 MG TABLET. PO SCH (21:30)
[2021-12-22] MEDS: BUDESONIDE 0.5 MG/2 ML NEBU NEB SCH (22:07)
[2021-12-22] MEDS: busPIRone 10 MG TABLET. PO SCH (22:08)
[2021-12-22] MEDS: ATORVASTATIN CALCIUM 10 MG TABLET. PO SCH (22:08)
[2021-12-22] MEDS: IPRATROPIUM BROMIDE 0.5 MG/2.5 ML NEBU. NEB SCH (22:08)
[2021-12-22] MEDS ORDERED: ACETAMINOPHEN 325 MG TABLET PO PRN (22:45)
[2021-12-22 23:00] VITALS: BP 125/73
[2021-12-23] VITALS (7 sets, daily range): BP systolic 106–118; BP diastolic 66–72
--- NOTE | 2021-12-23 01:42 | EKG ---
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
[2021-12-23 06:14] LABS: BASO # 0.1 x10^3/uL (0.0-0.2); BASO % 1 % (0-3); EOS # 0.4 x10^3/uL (0.0-0.7); EOS % 6 % (0-3); HEMATOCRIT 41.5 % (39.0-53.0); HEMOGLOBIN 13.6 g/dL (13.0-17.5); LYMPH # 1.5 x10^3/uL (1.0-4.8); LYMPH % 21 % (24-48); MEAN CORPUSCULAR HEMOGLOBIN 29 pg (25-35); MEAN CORPUSCULAR HGB CONC 33 g/dL (31-37); MEAN CORPUSCULAR VOLUME 88 fL (79-100); MONO # 0.8 x10^3/uL (0.0-1.1); MONO % 11 % (0-9); NEUT # 4.1 x10^3uL (1.8-7.7); NEUT % 60 % (31-73); PLATELET COUNT 197 x10^3/uL (140-400); RED CELL DISTRIBUTION WIDTH 14.1 % (11.5-14.5); WHITE BLOOD COUNT 6.9 x10^3/uL (4.0-11.0)
[2021-12-23 07:07] LABS: ALBUMIN 3.4 g/dL (3.4-5.0); ALBUMIN/GLOBULIN RATIO 1.4 (1.0-1.7); CALCIUM 9.1 mg/dL (8.5-10.1); CREATININE 1.4 mg/dL (0.7-1.3); POTASSIUM 4.5 mmol/L (3.5-5.1); TOTAL BILIRUBIN 0.4 mg/dL (0.2-1.0); TOTAL PROTEIN 5.9 g/dL (6.4-8.2)
[2021-12-23] MEDS ORDERED: FUROSEMIDE 40 MG TABLET PO SCH (09:00)
[2021-12-23] MEDS ORDERED: NON FORMULARY ITEM (Fluticasone Propionate (Flovent 50MCG Diskus) 50 MCG) IH SCH (09:00)
[2021-12-23] MEDS: DOCUSATE SODIUM 100 MG CAPSULE PO SCH ×2 (09:38→21:00)
[2021-12-23] MEDS: METHOCARBAMOL 500 MG TABLET PO SCH ×2 (09:38→20:59)
[2021-12-23] MEDS: MONTELUKAST 10 MG TABLET. PO SCH (09:39)
[2021-12-23] MEDS: ASPIRIN CHEWABLE 81 MG TABLET. PO SCH (09:39)
[2021-12-23] MEDS: MELOXICAM 15 MG TABLET. PO SCH (09:39)
[2021-12-23] MEDS: METOPROLOL SUCC 24HR ER 25 MG TAB.ER.24H. PO SCH (09:41)
[2021-12-23] MEDS: busPIRone 10 MG TABLET. PO SCH ×2 (09:41→21:00)
[2021-12-23] MEDS: CETIRIZINE HCL 10 MG TABLET PO SCH (09:41)
[2021-12-23] MEDS: PANTOPRAZOLE 40 MG TABLET. PO SCH ×2 (09:41→21:00)
[2021-12-23] MEDS: BUDESONIDE 0.5 MG/2 ML NEBU NEB SCH ×2 (09:41→21:45)
[2021-12-23] MEDS: IPRATROPIUM BROMIDE 0.5 MG/2.5 ML NEBU. NEB SCH ×4 (09:41→21:45)
--- NOTE | 2021-12-23 18:39 | HP ---
DATE OF SERVICE: 12/23/2021 ADMIT DATE: 12/22/2021 HISTORY OF PRESENT ILLNESS: The patient is a 76-year-old male patient who was brought to the Emergency Department via EMS for near syncope. The patient reports that he got up from sitting, started to feel lightheaded and felt like he almost passed out. He denied any loss of consciousness. He reported dizziness lasted for approximately 5-10 minutes and then resolved. He reports that at that time, he had also some trouble finding words, lasted 5 minutes but resolved. He also reported chronic headaches that is on the right frontal and occipital area. He states that he had imaging performed and they attributed his chronic headache to bone spurs in his neck. By the time he arrived to the Emergency Room, his lightheadedness has resolved. He denied any shortness of breath, chest pain, nausea, vomiting. Her reports he has chronic right eye blurring of vision. He is known to have atrial fibrillation diagnosed about 3 years ago while in [place], although he has never been on any blood thinner and is mostly on baby aspirin. He was extensively investigated in the Emergency Room, has had lab work and imaging studies. His lab work were mostly unremarkable. His cardiac enzyme, has 4 sets of troponin I high sensitivity, were all within normal range. He has an EKG and he was in sinus rhythm at a rate of 62 beats per minute. There is no ST segment elevation or depression. There is elevation actually in leads 2 and 3, which is comparable to previous EKGs. He had a CT scan of the head, which basically showed no abnormal attenuation within the brain parenchyma, no evidence of acute intracranial hemorrhage, no extraaxial fluid collection, no mass effect or midline shift. Ventricular size appropriate, basal cisterns are patent. No fracture is identified. Sanchez-white differentiation is preserved. Globes and orbits are within normal limits. Paranasal sinuses and mastoid air cells are clear. He has a CT angio of the chest, which showed no evidence of pulmonary emboli; new pulmonary nodules, 6 mm in the left upper lobe. He has also redemonstrated panlobular nodular tree-in-bud opacities, greatest at the right lower lobe, likely representing chronic infection, inflammatory process and finding compatible with COPD. The patient was admitted for further evaluation to consult the neurologist as well as the print developer. By the time I saw him, the patient has all his symptoms completely resolved. PAST MEDICAL HISTORY: Significant for traumatic brain injury while at [employer] in [place]. Since that time, he has blurring of vision in his right eye. He is known to have atrial fibrillation, hyperlipidemia, hypertension, chronic obstructive pulmonary disease, gastroesophageal reflux disease, obstructive sleep apnea. 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 He apparently was treated by his vp digital marketing social media and crm there for about 3 months. He was seen recently by vp digital marketing social media and crm at [facility]. The doctor's name is Addis Slater and she did a bronchoscopy and sent the bronchoalveolar lavage for culture and sensitivity. He was told that the fungal infection has recurred, but he has not seen the doctor yet that after she took the biopsies. PAST SURGICAL HISTORY: Significant for bilateral total hip arthroplasty, left total knee arthroplasty. He has bronchoscopy, transurethral resection of bladder tumor, bilateral cataract extraction, colonoscopy and esophagogastroduodenoscopy as well as cholecystectomy. ALLERGIES: HE IS ALLERGIC TO CODEINE AND SULFA DRUGS. MEDICATIONS: He is currently on following medications: He is on methocarbamol 500 mg, he takes 1-1/2 tablets twice a day. He is on Combivent 1 puff 4 times a day, cetirizine 10 mg once a day, aspirin 81 mg once a day, furosemide 40 mg twice a day. He is on Protonix 40 mg twice a day; metoprolol, probably succinate 25 mg once a day; Colace 100 mg, he takes two capsules twice a day. Meloxicam 7.5 mg, he takes 2 tablets once a day. Atorvastatin 10 mg at bedtime, Mucinex 600 mg twice a day. Flonase 1 spray to each nostril once a day. Singulair 10 mg at bedtime, buspirone 10 mg twice a day and ipratropium bromide by nebulizer 4 times a day. FAMILY HISTORY: He has one brother, older, has multiple medical problems and still alive. His father at age of 87 because of old age and mother at age of 79 and had diabetes mellitus and congestive heart failure. SOCIAL HISTORY: He is for the second time. He has 2 daughters from previous marriage. He quit smoking about 28 years ago, used to smoke 3.5 packs a day and smoked for 36 years. He quit drinking also long time ago. He does not use any drugs. 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 REVIEW OF SYSTEMS: As per history of present illness. PHYSICAL EXAMINATION: GENERAL: On arrival to the Emergency Room, he looked well and was clearly in no apparent respiratory distress. No pallor, jaundice, cyanosis, or thyromegaly. No jugular venous distention. No limb edema. VITAL SIGNS: His heart rate was 67, blood pressure was 120/84, temperature 97.6, respiratory rate was 17 and his oxygen saturation was 98% on room air. HEAD, EYES, EARS, NOSE, AND THROAT: Normocephalic, atraumatic. NECK: Supple. HEART: Normal first and second heart sounds. No gallop, rub or murmur. CHEST: Shows central trachea, equal bilateral chest expansion, air entry, vesicular breath sounds. I could not really appreciate any crepitation or rhonchi. ABDOMEN: Scaphoid, soft, nontender. NEUROLOGIC: He was awake, alert, responding appropriately. Cranial nerves intact. He moves extremities without difficulty. He was in fact able to ambulate without assistance or assistive devices. LABORATORY DATA: His lab work on arrival showed a white cell count of 8.5, hemoglobin 14, hematocrit 43, MCV 88 and platelet count 211,000 with the manual differential showed 70% polymorphs, 15% lymphocytes and 9% monocytes, 5% eosinophils. His chemistry showed a serum sodium 141, potassium 4.5, chloride 104, bicarbonate 31, anion gap of 6, BUN 21, creatinine 1.3. Estimated GFR was 53 mL per minute. His glucose 91, calcium was 9.5. Total bilirubin, AST, ALT, alkaline phosphatase were normal. His total protein 6.9, albumin was 3.7. His prothrombin time, INR and APTT were normal. His urinalysis was essentially unremarkable and toxic screen was negative. His coronavirus by PCR was not detectable. His CT scan of the head showed no abnormal attenuation within the brain parenchyma, no evidence of acute intracranial hemorrhage, no extraaxial fluid collection, no mass effect or midline shift. Ventricular size is appropriate. Basal cisterns are patent. No fracture identified. Sanchez-white differentiation is preserved. Globes and orbits are within normal limits. Paranasal sinuses and mastoid air cells are clear. CT angio showed that the patient has no pulmonary emboli and new pulmonary nodule ____ lobular nodular tree-in-bud opacities, greater at the right lower lobe, likely representing chronic inflammation or infection. He does have history of fungal infection in his lungs and other findings are compatible with COPD. ASSESSMENT AND PLAN: The patient was admitted. We will reconcile all his medications. I have consulted the neurologist as well as print developer. I would arrange for him to have bilateral carotid artery Doppler ultrasound and will decide the further management accordingly. HILARIO/JAIME DR: Kristy TID: [id number]
[2021-12-23] MEDS: ATORVASTATIN CALCIUM 10 MG TABLET. PO SCH (20:59)
[2021-12-24 05:00] VITALS: BP 126/73
[2021-12-24] MEDS: IPRATROPIUM BROMIDE 0.5 MG/2.5 ML NEBU. NEB SCH ×2 (06:29→09:15)
[2021-12-24] MEDS: BUDESONIDE 0.5 MG/2 ML NEBU NEB SCH ×2 (06:29→09:15)
[2021-12-24 06:52] LABS: CALCIUM 9.1 mg/dL (8.5-10.1); CREATININE 1.2 mg/dL (0.7-1.3); GFR 58.6; POTASSIUM 4.6 mmol/L (3.5-5.1)
[2021-12-24] MEDS: DOCUSATE SODIUM 100 MG CAPSULE PO SCH (07:30)
[2021-12-24] MEDS: PANTOPRAZOLE 40 MG TABLET. PO SCH (07:30)
[2021-12-24] MEDS: CETIRIZINE HCL 10 MG TABLET PO SCH (07:31)
[2021-12-24] MEDS: METHOCARBAMOL 500 MG TABLET PO SCH (07:31)
[2021-12-24] MEDS: MELOXICAM 15 MG TABLET. PO SCH (07:31)
[2021-12-24] MEDS: METOPROLOL SUCC 24HR ER 25 MG TAB.ER.24H. PO SCH (07:31)
[2021-12-24] MEDS: ASPIRIN CHEWABLE 81 MG TABLET. PO SCH (07:31)
[2021-12-24] MEDS: busPIRone 10 MG TABLET. PO SCH (07:31)
[2021-12-24] MEDS: MONTELUKAST 10 MG TABLET. PO SCH (07:41)
[2021-12-24 07:42] VITALS: BP 123/69
--- NOTE | 2021-12-24 08:26 | RAD ---
US DPLX CAROTID BILAT History: Reason: TIA with dysrthria and difficulty finding words / Spl. Instructions: / History: COMPARISON: None Technique: Duplex sonography of the cervical portion of both carotid arteries was performed. Real-trinity e grayscale, color flow Doppler, and Doppler spectral waveform analysis is performed. PQRS Compliance Statement - Stenosis calculations for CT, MR and conventional angiography are based u lennie measurement of the distal ICA diameter in accordance with the NASCET methodology. Stenosis calcu lations for carotid ultrasound studies are derived from validated velocity criteria which are known t o correlate with the NASCET methodology. Findings: Right side: Peak systolic flow velocity of the CCA is 103 cm/sec. Peak systolic flow velocity of the ICA is 103 cm/sec. The ICA/CCA ratio is 1.0. Peak end diastolic flow velocity of the ICA is 35 cm/sec. The peak systolic velocity of the ECA is 82 cm/sec. Mild atheromatous plaque. Left side: Peak systolic flow velocity of the CCA is 92 cm/sec. Peak systolic flow velocity of the ICA is 118 cm/sec. The ICA/CCA ratio is 1.1. Peak end diastolic flow velocity of the ICA is 45 cm/sec. Peak systolic flow velocity of the ECA is 109 cm/sec. Mild atheromatous plaque. Vertebral arteries: Bilateral vertebral arteries demonstrate antegrade flow. IMPRESSION: 1. No hemodynamically significant internal carotid artery stenosis. 2. Mild atheromatous plaque. Electronically signed by: James Starr DO (12/24/2021 8:24 AM) [id number]
--- NOTE | 2021-12-24 08:44 | PDOC2 ---
CARDIAC CONSULT DATE OF CONSULT DOS: DATE: 12/24/21 TIME: 08:42 REASON FOR CONSULT Reason for Consult near syncope REFERRING PHYSICIAN Referring Physician Sonia Connor APRN SOURCE Source: Chart review, Patient HPI History of Present Illness This is a 76 yo male who presented secondary to near syncope. Patient reports that he got up yesterday morning and was feeling well and did his usual morning routine of coffee, breakfast, and his morning meds. Later in the morning, reports he was sitting down and turned quickly to catch something that his great grandson was doing on the computer. Reports he instantly began feeling altered "blank". Was alert enough to tell grandson to go get his grandmother for help. She called EMS. He attempted to stand with her but became very dizzy, as is he could pass out so he sat back down. Reports felling "out of it" for about 45 mins. Does reports being altered with decreased mentation, but was able to recall what was occurring at the time. Reports that said he was "talking crazy". He denies any LOC or falls. Does have a history of AFIB. Is on metoprolol and ASA therapy. Does not follow with weatherization technician. Has not had any cardiac testing in multiple years. He denies any chest pain, palpitations, diaphoresis, or SOA. Is feeling well this morning. Does report having significant amount of stress at home and has been raising his great-grandson alongside his . 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 Cardiovascular: AFIB, HTN, hyperipidemia Pulmonary: COPD, Other (SHELLY) GI: GERD, Other (esophageal stricture) PAST SURGICAL HISTORY Past Surgical History: Cholecystectomy, Cataract Removal, Total hip replacement, Total knee replacement, Other (TURP) FAMILY HISTORY Family History: Diabetes, Heart Disease SOCIAL HISTORY Smoke: Quit ALCOHOL: none Drugs: None Lives: with Family CURRENT MEDICATIONS Current Medications Current Medications Iohexol (Omnipaque 350 Mg/ml) 100 ml 1X ONCE IV Last administered on 12/22/21at 14:18; Start 12/22/21 at 13:15; Stop 12/22/21 at 13:16; Status DC Iohexol (Omnipaque 350 Mg/ml) 100 ml 1X ONCE IV ; Start 12/22/21 at 14:15; Stop 12/22/21 at 14:16; Status DC Info (Do NOT chart on this entry -- for MONITORING) 1 each PRN DAILY PRN MC SEE COMMENTS; Start 12/22/21 at 14:30; Stop 12/24/21 at 14:29 Aspirin (Aspirin Chewable) 81 mg DAILY PO Last administered on 12/24/21 07:31; Start 12/23/21 at 09:00 Atorvastatin Calcium (Lipitor) 10 mg QHS PO Last administered on 12/23/21 20:59; Start 12/22/21 at 21:30 Buspirone HCl (Buspar) 10 mg BID PO Last administered on 12/24/21 07:31; Start 12/22/21 at 21:30 Cetirizine HCl (ZyrTEC) 10 mg DAILY PO Last administered on 12/24/21 07:31; Start 12/23/21 at 09:00 Furosemide (Lasix) 40 mg BID92 PO ; Start 12/23/21 at 09:00; Stop 12/22/21 at 22:03; Status DC Ipratropium [place]coe (Atrovent) 0.2 mg QID NEB Last administered on 12/24/21 06:29; Start 12/22/21 at 21:30 Meloxicam (Mobic) 15 mg DAILY PO Last administered on 12/24/21 07:31; Start 12/23/21 at 09:00 Metoprolol Succinate (Toprol Xl) 25 mg DAILY PO Last administered on 12/24/21 07:31; Start 12/23/21 at 09:00 Montelukast Sodium (Singulair) 10 mg DAILY PO Last administered on 12/24/21 07:41; Start 12/23/21 at 09:00 Pantoprazole Sodium (Protonix) 40 mg BID PO Last administered on 12/24/21 07:30; Start 12/22/21 at 21:30 Docusate Sodium (Colace) 200 mg BID PO Last administered on 12/24/21 07:30; Start 12/23/21 at 09:00 Non-Formulary Medication (Fluticasone Propionate (Flovent 50MCG Diskus)) 50 mcg DAILY IH ; Start 12/23/21 at 09:00; Status UNV Guaifenesin (Mucinex Er) 1,200 mg BID PO Last administered on 4/13/22at 07:29; Start 12/22/21 at 21:30 Non-Formulary Medication (Ipratropium/ Albuterol Sulfate (Combivent Respimat Inhal)) 1 puff QID INH ; Start 12/22/21 at 21:00; Status UNV Methocarbamol (Robaxin) 750 mg BID PO Last administered on 12/24/21at 07:31; Start 12/23/21 at 09:00 Budesonide (Pulmicort) 0.5 mg RTBID NEB Last administered on 12/24/21at 06:29; Start 12/22/21 at 21:30 Acetaminophen (Tylenol) 650 mg PRN Q6HRS PRN PO headache Last administered on 12/22/21at 22:51; Start 12/22/21 at 22:45 Fluticasone Propionate (Flonase) 2 spray DAILY NS Last administered on 12/24/21at 07:29; Start 12/24/21 at 09:00 Active Scripts Active Reported Ipratropium Roscoe 0.2 Mg/1 Ml Solution 1 Vial NEB QID Buspirone Hcl 10 Mg Tablet 10 Mg PO BID Singulair Tablet (Montelukast Sodium) 10 Mg Tablet 10 Mg PO DAILY Flovent 50MCG Diskus (Fluticasone Propionate) 50 Mcg Disk.w.dev 50 Mcg IH DAILY Mucinex (Guaifenesin) 1,200 Mg Tbmp.12hr 1,200 Mg PO BID Atorvastatin Calcium 10 Mg Tablet 10 Mg PO QHS Meloxicam 15 Mg Tablet 15 Mg PO DAILY Docusate Sodium 100 Mg Tablet 200 Mg PO BID Metoprolol Succinate ( Xl ) (Metoprolol Succinate) 25 Mg Tab.er.24h 25 Mg PO DAILY Pantoprazole Sodium 40 Mg Tablet.dr 40 Mg PO BID Furosemide 40 Mg Tablet 40 Mg PO BID92 Aspirin 81 Mg Tab.chew 81 Mg PO DAILY Cetirizine Hcl 10 Mg Tablet 10 Mg PO DAILY Combivent Respimat Inhal (Ipratropium/Albuterol Sulfate) 4 Gm Aer.w.adap 1 Puff INH QID Methocarbamol 750 Mg Tablet 750 Mg PO BID ALLERGIES Allergies: Coded Allergies: No Known Drug Allergies (Unverified , 09/03/21) ROS Review of Systems 14 point ROS conducted with pertinent positives noted above in HPI PHYSICAL EXAM General: Alert, Oriented X3, Cooperative, No acute distress HEENT: Atraumatic Lungs: Clear to auscultation Heart: Regular rate Abdomen: Soft, No tenderness Extremities: No edema, Normal pulses Skin: No breakdown Neuro: Normal speech, Sensation intact Psych/Mental Status: Mental status NL, Mood NL MUSCULOSKELETAL: Osteoarthritic changes both hands VITALS Vital Signs Vital Signs Date Time Temp Pulse Resp B/P (MAP) Pulse Ox O2 Delivery O2 Flow Rate FiO2 12/24/21 07:59 Room Air 12/24/21 07:42 97.8 69 20 123/69 (87) 95 LABS LABS Laboratory Tests Test 12/22/21 12:45 12/22/21 12:57 12/22/21 13:30 12/22/21 16:05 Urine Collection Type Clean catch Urine Color Yellow Urine Clarity Clear Urine pH 6.0 Urine Specific [place] 1.010 Urine Protein Neg (NEG-TRACE) Urine Glucose (UA) Neg mg/dL (NEG) Urine Ketones (Stick) Neg mg/dL (NEG) Urine Blood Neg (NEG) Urine Nitrite Neg (NEG) Urine Bilirubin Neg (NEG) Urine Urobilinogen Dipstick 0.2 mg/dL (0.2 mg/dL) Urine Leukocyte Esterase Neg (NEG) Urine RBC 0 /HPF (0-2) Urine WBC 0 /HPF (0-4) Urine Squamous Epithelial Cells None /LPF Urine Bacteria 0 /HPF (0-FEW) Urine Opiates Screen Neg (NEG) Urine Methadone Screen Neg (NEG) Urine Barbiturates Neg (NEG) Urine Phencyclidine Screen Neg (NEG) Urine Amphetamine/Methamphetamine Neg (NEG) Urine Benzodiazepines Screen Neg (NEG) Urine Cocaine Screen Neg (NEG) Urine Cannabinoids Screen Neg (NEG) Urine Ethyl Alcohol Neg (NEG) White Blood Count 8.5 x10^3/uL (4.0-11.0) Red Blood Count 4.93 x10^6/uL (4.30-5.70) Hemoglobin 14.3 g/dL (13.0-17.5) Hematocrit 43.4 % (39.0-53.0) Mean Corpuscular Volume 88 fL (79-100) Mean Corpuscular Hemoglobin 29 pg (25-35) Mean Corpuscular Hemoglobin Concent 33 g/dL (31-37) Red Cell Distribution Width 14.0 % (11.5-14.5) Platelet Count 211 x10^3/uL (140-400) Neutrophils (%) (Auto) 70 % (31-73) Lymphocytes (%) (Auto) 15 % (24-48) Monocytes (%) (Auto) 9 % (0-9) Eosinophils (%) (Auto) 5 % (0-3) Basophils (%) (Auto) 2 % (0-3) Neutrophils # (Auto) 6.0 x10^3uL (1.8-7.7) Lymphocytes # (Auto) 1.3 x10^3/uL (1.0-4.8) Monocytes # (Auto) 0.7 x10^3/uL (0.0-1.1) Eosinophils # (Auto) 0.4 x10^3/uL (0.0-0.7) Basophils # (Auto) 0.2 x10^3/uL (0.0-0.2) Prothrombin Time 9.9 SEC (9.4-11.4) Prothromb Time International Ratio 1.0 (0.9-1.1) Activated Partial Thromboplast Time 27 SEC (23-33) Troponin I High Sensitivity 14 ng/L (4-75) Sodium Level 141 mmol/L (136-145) Potassium Level 4.5 mmol/L (3.5-5.1) Chloride Level 104 mmol/L (98-107) Carbon Dioxide Level 31 mmol/L (21-32) Anion Gap 6 (6-14) Blood Urea Nitrogen 21 mg/dL (8-26) Creatinine 1.3 mg/dL (0.7-1.3) Estimated GFR (Cockcroft-Gault) 53.4 BUN/Creatinine Ratio 16 (6-20) Glucose Level 91 mg/dL (70-99) Calcium Level 9.5 mg/dL (8.5-10.1) Total Bilirubin 0.5 mg/dL (0.2-1.0) Aspartate Amino Transf (AST/SGOT) 25 U/L (15-37) Alanine Aminotransferase (ALT/SGPT) 28 U/L (16-63) Alkaline Phosphatase 105 U/L (46-116) Total Protein 6.9 g/dL (6.4-8.2) Albumin 3.7 g/dL (3.4-5.0) Albumin/Globulin Ratio 1.2 (1.0-1.7) Coronavirus (COVID-19)(PCR) Not detected (NOT DETECTD) SARS-CoV-2 Antigen (Rapid) Negative (NEGATIVE) Test 12/22/21 17:30 12/22/21 18:39 12/22/21 21:18 12/22/21 23:13 Troponin I High Sensitivity 12 ng/L (4-75) 15 ng/L (4-75) 13 ng/L (4-75) Glucose (Fingerstick) 203 mg/dL (70-99) Test 12/23/21 06:04 12/24/21 06:13 White Blood Count 6.9 x10^3/uL (4.0-11.0) Red Blood Count 4.70 x10^6/uL (4.30-5.70) Hemoglobin 13.6 g/dL (13.0-17.5) Hematocrit 41.5 % (39.0-53.0) Mean Corpuscular Volume 88 fL (79-100) Mean Corpuscular Hemoglobin 29 pg (25-35) Mean Corpuscular Hemoglobin Concent 33 g/dL (31-37) Red Cell Distribution Width 14.1 % (11.5-14.5) Platelet Count 197 x10^3/uL (140-400) Neutrophils (%) (Auto) 60 % (31-73) Lymphocytes (%) (Auto) 21 % (24-48) Monocytes (%) (Auto) 11 % (0-9) Eosinophils (%) (Auto) 6 % (0-3) Basophils (%) (Auto) 1 % (0-3) Neutrophils # (Auto) 4.1 x10^3uL (1.8-7.7) Lymphocytes # (Auto) 1.5 x10^3/uL (1.0-4.8) Monocytes # (Auto) 0.8 x10^3/uL (0.0-1.1) Eosinophils # (Auto) 0.4 x10^3/uL (0.0-0.7) Basophils # (Auto) 0.1 x10^3/uL (0.0-0.2) Sodium Level 144 mmol/L (136-145) 143 mmol/L (136-145) Potassium Level 4.5 mmol/L (3.5-5.1) 4.6 mmol/L (3.5-5.1) Chloride Level 105 mmol/L (98-107) 106 mmol/L (98-107) Carbon Dioxide Level 33 mmol/L (21-32) 30 mmol/L (21-32) Anion Gap 6 (6-14) 7 (6-14) Blood Urea Nitrogen 27 mg/dL (8-26) 22 mg/dL (8-26) Creatinine 1.4 mg/dL (0.7-1.3) 1.2 mg/dL (0.7-1.3) Estimated GFR (Cockcroft-Gault) 49.0 58.6 BUN/Creatinine Ratio 19 (6-20) Glucose Level 92 mg/dL (70-99) 97 mg/dL (70-99) Calcium Level 9.1 mg/dL (8.5-10.1) 9.1 mg/dL (8.5-10.1) Total Bilirubin 0.4 mg/dL (0.2-1.0) Aspartate Amino Transf (AST/SGOT) 21 U/L (15-37) Alanine Aminotransferase (ALT/SGPT) 26 U/L (16-63) Alkaline Phosphatase 103 U/L (46-116) Total Protein 5.9 g/dL (6.4-8.2) Albumin 3.4 g/dL (3.4-5.0) Albumin/Globulin Ratio 1.4 (1.0-1.7) ASSESSMENT/PLAN Assessment/Plan 1. Dizziness, near syncope; No LOC. CT head without acute findings. Carotid US without significant disease. Orthos negative. Etiology unclear. Neurology consults 2. Hypertension; controlled 3. Hyperlipidemia; statin 4. PAFIB; presently SR. On metoprolol for rate control 5. SHELLY with CPAP 6. H/o TBI 7. Increased life stressors Recommendations Continue ASA therapy Metoprolol for rate control Will arranged outpatient event monitor, echocardiogram, and follow up in our office with FELISHA Navarrete APRN Dec 24, 2021 08:44
[2021-12-24] MEDS ORDERED: FLUTICASONE 50MCG/NASAL SPRAY 16GM BOTTLE. NS SCH (09:00)
[2021-12-24 10:18] VITALS: BP 118/70
--- NOTE | 2021-12-24 14:40 | PN ---
DATE: 12/23/2021 SUBJECTIVE: The patient is sitting slightly propped up in bed and is in no apparent respiratory distress. He has no further episodes of dizziness or syncope. He is able to talk without any difficulty. I did not observe any difficulty finding words. I observed walking around without any assistance or assistive devices. PHYSICAL EXAMINATION: GENERAL: When I examined him this afternoon, he looked well and was clearly in no apparent respiratory distress. There was no pallor, jaundice, cyanosis or thyromegaly. No jugular venous distention. No limb edema. VITAL SIGNS: His heart rate was 63, blood pressure was 118/69, temperature 97.6, respiratory rate was 18 and oxygen saturation was 93% on room air. HEAD, EYES, EARS, NOSE, AND THROAT: Normocephalic, atraumatic. NECK: Supple. HEART: Normal first and second heart sounds. No gallop, rub or murmur. CHEST: Showed central trachea, equal bilateral chest expansion, air entry, vesicular breath sounds. No crepitation or rhonchi. ABDOMEN: Scaphoid, soft, nontender. NEUROLOGIC: He was awake, alert, responding appropriately. Cranial nerves intact. He moves extremities without difficulty, ambulates without assistance or assistive devices. His intake and output are incompletely recorded. LABORATORY DATA: Showed a white cell count of 9.6, hemoglobin 13.6, hematocrit 41, MCV 88 and platelet count of 197,000. His chemistry showed a serum sodium of 144, potassium 4.5, chloride 105, bicarbonate 33, anion gap of 6, BUN 27, creatinine 1.4. Estimated GFR was 49 mL per minute. His glucose was 92, calcium was 9.1. Total bilirubin, AST, ALT, alkaline phosphatase were normal. His total protein 5.9, albumin was 3.4. ASSESSMENT: 1. Transient ischemic attack, resolved. His symptoms have disappeared. He has no more aphasia. The patient has a multitude of medical problems including traumatic brain injury in 1968 while at [place]. 2. Hyperlipidemia. 3. Atrial fibrillation, rate controlled, not anticoagulated. 4. Bladder cancer, status post transurethral resection of the bladder cancer. 5. Chronic obstructive pulmonary disease. 6. Obstructive sleep apnea. 7. Esophageal stricture, status post esophageal dilatation. 8. Gastroesophageal reflux disease. 9. 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 He apparently was seen recently by Dr. Addis Slater, she is a master barber at [facility]. She apparently did a bronchoscopy and sent bronchoalveolar lavage, the result of which is still pending. PLAN: My plan is to continue all his medication. I did order carotid Doppler ultrasound and fasting lipid profile tomorrow. I did consult the plumbing service technician as well as the neurologist. DAVIDE DR: Kristy TID: [id number]
[2021-12-24 19:46] LABS: CHOLESTEROL/HDL RATIO 3.7
--- NOTE | 2021-12-24 21:52 | DS ---
ATTENDING PHYSICIAN: Dr. Duffy. FINAL DISCHARGE DIAGNOSES: 1. Near syncope, resolved. 2. History of traumatic brain injury in [place]. 3. Paroxysmal atrial fibrillation. 4. Hypertension. 5. Chronic obstructive pulmonary disease. 6. Gastroesophageal reflux disease. 7. Esophageal strictures. 8. Degenerative arthritis. 9. Cervical neck pain due to a stress tension headaches. HISTORY AND PHYSICAL: The patient, age 76, admitted through the ED with vague symptoms of lightheadedness or dizziness. He almost passed out. said he was speaking in a strange words. They were concerned about a stroke. He had a negative workup in the ED. He was admitted for further evaluation, Cardiology and Neurology consultation. PHYSICAL EXAMINATION: Please see the dictated note. PERTINENT LABORATORY AND X-RAY STUDIES: Admission hemoglobin was 14.3 g, white count 8500. Electrolytes all within normal range. Nonfasting blood sugar is 97. Transaminases were normal. Cardiac enzymes were negative for coronary ischemia. Urine drug screen was negative. Serology negative for coronavirus. COURSE IN THE HOSPITAL: The patient was admitted. He had formal Cardiology consultation as well as Neurology consultation. I reassured him, no stroke was identified. He was back to his baseline. Cardiology group recommended an outpatient echocardiogram and event monitor to be scheduled after discharge. On the second full hospital day, his vital signs were stable. Blood pressure was 123/69. He was afebrile. Lungs were clear. Cardiovascular exam shows regular heart tones. He was in a sinus rhythm. At this time, his atrial fibrillation was transient and paroxysmal. I do believe anticoagulation is necessary. He is already on an aspirin. He is therefore discharged home with no changes on his meds. He will continue his aspirin 81 mg daily, Lipitor, BuSpar, cetirizine, docusate, fluticasone spray, Lasix, guaifenesin, ipratropium, Robaxin p.r.n., metoprolol, Singulair, and Protonix dose unchanged. For now, I have asked him to hold the meloxicam because of side effects. The patient was then discharged from our hospital in stable condition with explicit written followup care. He will follow up with his PCP, Cardiology services was also set up for the event monitor as an outpatient. Total discharge time was [address]: Derik TID: [id number] CC: NOAH MAYER
--- NOTE | 2021-12-24 23:48 | CONS ---
DATE OF CONSULTATION: 12/22/2021 NEUROLOGICAL CONSULTATION REFERRING PHYSICIAN: Dr. Duffy. REASON FOR CONSULTATION: New-onset of headaches, dizziness and difficulty finding words. HISTORY OF PRESENT ILLNESS: This is a 76-year-old right-handed male who was admitted through Emergency Room after he presented with sudden onset of dizziness, described as lightheadedness and feeling as going to pass out. These symptoms lasted approximately 10 minutes, then resolved. He also reported very brief difficulty finding some words, but he denies slurred speech. He complains of chronic tension type headaches, but this morning, he started having severe occipital and frontal headaches without nausea or vomiting. He denies chest pain, shortness of breath at rest, dysphagia, dysarthria, weakness or paresthesia. 911 was activated and transferred the patient to Emergency Room where he was found asymptomatic and all his symptoms resolved. Initial nonenhanced head CT scan revealed no evidence of acute intracranial process, but mild enlargement of the ventricles and ____ atrophy. He had a chest CT scan, which revealed no evidence of pulmonary embolism. The patient was admitted for further evaluation and possible TIA. PAST MEDICAL HISTORY: Significant for atrial fibrillation diagnosed several years ago, COPD, hypertension, hyperlipidemia, sleep apnea, dysphagia due to esophageal stricture requiring dilatation, history of ____ fungal infection confirmed by bronchoscopy and biopsy and followed by bicycle fitter at [facility]. PAST SURGICAL HISTORY: Left total knee replacement, resection of the bladder tumor, cataract extraction and cholecystectomy. FAMILY HISTORY: Noncontributory; however, his father at age of 87 and his mother at age of 79 with history of diabetes mellitus and congestive heart failure. SOCIAL HISTORY: The patient is , has 2 daughters. He quit smoking long time ago; however, he was a heavy smoker and he quit drinking as well. He denies any illegal drug use. He is retired from the [employer]. CURRENT HOME MEDICATIONS: Include muscle relaxant as Robaxin 500 mg twice daily, Combivent inhaler, cetirizine 10 mg daily, aspirin 81 mg daily, furosemide 40 mg twice daily, Protonix for EGD 40 mg twice daily, metoprolol 25 mg once daily, Colace 100 mg twice daily p.r.n. for constipation, meloxicam 7.5 mg 2 tablets daily, Lipitor 10 mg at bedtime, Mucinex nasal spray twice daily and Singulair 10 mg at bedtime, buspirone 10 mg twice daily and nebulizer. REVIEW OF SYSTEMS: A 10-point review of system was performed as mentioned above in history of present illness, otherwise unremarkable. PHYSICAL EXAMINATION: GENERAL: Well-developed, well-nourished male, not in acute distress. He weighs 83.7 kilos. VITAL SIGNS: Blood pressure 116/70, respiratory rate 18, pulse is 71 and regular, temperature 97.7, oxygen saturation is 95% on room air. HEENT: Normocephalic, atraumatic, otherwise unremarkable. NECK: Supple, negative for carotid bruit, lymphadenopathy or thyromegaly. LUNGS: Clear to A and P, with diminished breath sounds, but no wheezing or rales. CARDIOVASCULAR: Regular rate and rhythm, normal S1, S2. There is no S3, S4 or murmur. ABDOMEN: Soft. Bowel sounds positive. EXTREMITIES: Negative for cyanosis, clubbing or pedal edema. NEUROLOGIC: Mental status: The patient is alert and oriented x3. The speech is fluent. There is no language dysfunction. Memory, judgment and abstract thinking are fair. The patient denies hallucination or delusion. Cranial nerves: Visual rendon are full. The pupils are reactive to light and accommodation. The extraocular movements are intact. There is no nystagmus. There is no facial motor or sensory deficits. Hearing is intact bilaterally. The palate is elevated symmetrically. Sternocleidomastoid muscles are powerful bilaterally. The patient shrugs his shoulders symmetrically, protrudes his tongue in the midline without fasciculation or atrophy. Motor exam: No focal muscle bulk was seen. The tone is normal. The strength is 5/5 throughout. Sensory examination revealed normal pinprick and light touch senses throughout. Deep tendon reflexes were symmetric and hypoactive with absent Achilles responses. Gait not tested. DIAGNOSTIC DATA: Head CT scan and chest CT angio revealed as mentioned above in history of present illness. LABORATORY DATA: CBC revealed white cells of 8.5 thousand, hemoglobin 14.3, hematocrit 43.4, platelet count 211,000. Chemistry revealed a sodium of 144, potassium 4.5, chloride 105, CO2 of 33, BUN 27, creatinine 1.4, glucose is 92, calcium 9.1. Liver enzymes are normal and troponin 1 high sensitivity is normal. Coagulation normal. Urinalysis, no evidence of urinary tract infection. Urine drug screen is negative as well. COVID PCR is not detected and rapid COVID is negative. IMPRESSION: 1. New-onset of lightheadedness, difficulty finding words and headaches, may represent a transient ischemic attack. 2. Multiple medical problems include hypertension, hyperlipidemia, chronic obstructive pulmonary disease, gastroesophageal reflux disease, tension type headaches, sleep apnea, history of atrial fibrillation, but EKG today revealed no evidence of cardiac arrhythmias or atrial fibrillation. The patient has not been on any on anticoagulants, but aspirin. RECOMMENDATIONS: 1. Continue with current management initiated by Dr. Duffy. 2. Agree with aspirin for now. 3. CT angio of the neck and head; however, he has been scheduled for bilateral carotid Doppler study and ultrasound. SUSSY/MARINA/BELL DR: [place] TID: [id number]
--- NOTE | 2021-12-25 01:53 | PN ---
SUBJECTIVE: The patient continues to have severe occipital headaches. He denies chest pain, shortness of breath or palpitation, dysarthria or dysphagia, weakness or paresthesia. OBJECTIVE: GENERAL: Well-developed, well-nourished male, not in acute distress. VITAL SIGNS: Blood pressure 123/68, respiratory rate 20, pulse is 69 and regular, oxygen saturation 95% on room air, temperature 97.8. HEENT: Normocephalic, atraumatic, otherwise unremarkable. NECK: Supple. Negative for carotid bruit, lymphadenopathy or thyromegaly. LUNGS: Clear to A and P. CARDIOVASCULAR: Regular rate and rhythm, normal S1, S2. There is no S3, S4 or murmur. ABDOMEN: Soft. Bowel sounds positive. EXTREMITIES: Negative for cyanosis, clubbing or edema. NEUROLOGIC: Mental status: The patient is alert and oriented x 3. Speech is fluent. There is no language dysfunction. Memory, judgment and abstracting thinking are normal. The patient denies hallucination or delusion. Cranial nerves are intact except for mild hearing loss bilaterally. Motor exam: No focal muscle bulk wasting. The tone is normal. The strength is 5/5 throughout. Sensory examination revealed normal pinprick, light touch, vibratory and position senses. Deep tendon reflexes were symmetric and active without pathology responses. Gait: The patient is able to stand up and walk in the [place]. IMPRESSION: 1. Possible transient ischemic attack. No recurrence. 2. Tension headaches and possible radiating from the cervical spine. 3. Multiple medical problems include history of atrial fibrillation, hypertension, hyperlipidemia, obstructive sleep apnea, on CPAP and severe arthritis of the hips bilaterally. RECOMMENDATIONS: 1. Continue with current management initiated by Dr. Duffy/Dr. Singh. 2. Cardiology consult regarding history of atrial fibrillation. 3. Physical therapy evaluation. SUSSY/MARIJA DR: SUSSY/dyana TID: [id number]
== END 2021-12-24 12:29 | disposition home or self-care (01) | DRG 69 ==
LOC: ER 12:35 → ER HOLD 15:39 → 1 SOUTH 18:43
PROVIDERS: ADMIT Internal Medicine; ATTEND Internal Medicine
DX: G45.9 Transient cerebral ischemic attack, unspecified (principal); I48.0 Paroxysmal atrial fibrillation; E78.5 Hyperlipidemia, unspecified; G47.33 Obstructive sleep apnea (adult) (pediatric); I10 Essential (primary) hypertension; J43.9 Emphysema, unspecified; K21.9 Gastro-esophageal reflux disease without esophagitis; K22.2 Esophageal obstruction; Z96.643 Presence of artificial hip joint, bilateral; Z96.652 Presence of left artificial knee joint; F41.9 Anxiety disorder, unspecified; M54.2 Cervicalgia; R91.1 Solitary pulmonary nodule; Z20.822 Contact with and (suspected) exposure to COVID-19; Z79.82 Long term (current) use of aspirin; Z79.899 Other long term (current) drug therapy; Z82.49 Family history of ischemic heart disease and other diseases of the circulatory system; Z83.3 Family history of diabetes mellitus; Z85.51 Personal history of malignant neoplasm of bladder; Z87.820 Personal history of traumatic brain injury; Z87.891 Personal history of nicotine dependence; Z98.41 Cataract extraction status, right eye; Z98.42 Cataract extraction status, left eye; Z90.49 Acquired absence of other specified parts of digestive tract; Z88.5 Allergy status to narcotic agent; Z88.2 Allergy status to sulfonamides
CPT/HCPCS: 36415; 70450; 71275; 80048; 80053; 80061; 80307; 81001; 82947; 84484; 85025; 85610; 85730; 87426; 93005; 93880; 94640; Q9967; U0003; 99285-25

== ENCOUNTER 2022-01-04 23:50 | Emergency (ER) | payer MEDICARE, OTHER ==
[~2022-01-04] VITALS: Ht 190.5 cm; Wt 83.7 kg
[~2022-01-04 23:50] MED LIST changes: +ASPI-630 PO; +ATOR10TA60 PO; +BUSP10TA PO; +CETI10TA16 PO; +DOCU100T5 PO; +FLUT50DI IH; +FURO40TA4 PO; +GUAI12003 PO; +IPRA0.2S5 NEB; +IPRA4AER INH; +MELO15TA23 PO; +METH-560 PO; +METO-239 PO; +MONT10TA80 PO; +PANT40TA6 PO
--- NOTE | 2022-01-05 00:14 | PHYS DOC ---
Past History Past Medical History: A-Fib, Bronchitis, COPD Additional Past Medical Histor: bladder cancer s/p resection (DALLAS EVANS MD) Past Surgical History: Cancer Surgery Additional Past Surgical Histo: partial cystectomy (DALLAS EVANS MD) Smoking: Quit Greater Than 1 Year Alcohol Use: None (DALLAS EVANS MD) General Adult EDM: Chief Complaint: GENERALIZED BODY ACHES HPI: HPI: ".. I ve been feel more short of breath.. coughing.... They recently diagnosis of Afib.. and they put this monitor on me to watch my heart the next couple weeks.. I was having some chest discomfort .. so I am here to get checked .. out..." Patient is a 76 year old male who presents with increased cough, malaise, arthralgia, myalgia and recent new diagnosis of A. fib. Patient did not get flu vaccination. Patient did not get COVID vaccination. Patient has not had a Pneumovax. Patient has known history of COPD. Patient has had previous episodes of syncope, history of traumatic brain injury in [place], paroxysmal atrial fibrillation, hypertension, gastro esophageal reflux, esophageal strictures, degenerative arthritis, cervical neuropathy, tension headaches, bronchitis, bladder cancer status postresection, pleural plaquing and scarring and over [id number] smoking history. Patient no longer smokes. Patient currently follows with Dr. Mayer for care. No recent travel. No specific ill contacts. Patient is not on any anticoagulation. (DALLAS EVANS MD) Review of Systems: Review of Systems: Constitutional: Denies fever or chills Eyes: Denies change in visual acuity HENT: Denies nasal congestion or sore throat Respiratory: Complains of cough and shortness of breath Cardiovascular: Complains of chest discomfort. Planes of recent diagnosis of A. fib. GI: Denies abdominal pain, nausea, vomiting, bloody stools or diarrhea : Denies dysuria Musculoskeletal: Chronic neck, back pain and joint pain Integument: Denies rash Neurologic: Denies headache, focal weakness or sensory changes Endocrine: Denies polyuria or polydipsia Lymphatic: Denies swollen glands Psychiatric: Denies depression or anxiety (DALLAS EVANS MD) Family History: Family History: Noncontributory to presentation (DALLAS EVANS MD) Current Medications: Current Meds: See nursing for home meds (DALLAS EVANS MD) Allergies: Allergies: Allergies Coded Allergies Type Severity Reaction Last Updated Verified No Known Drug Allergies 09/03/21 No (DALLAS EVANS MD) Physical Exam: PE: Constitutional: Moderate o acute distress, non-toxic appearance. [] HENT: Normocephalic, atraumatic, bilateral external ears normal, oropharynx moist, no oral exudates, nose swollen turbinates clear rhinorrhea. Eyes: PERRLA, EOMI, conjunctiva normal, no discharge. [] Neck: Normal range of motion, no tenderness, supple, no stridor. [] Cardiovascular: Irregular heart rate, irregular rhythm, no murmur, PMI to left. Bedside monitor shows a controlled ventricular rate in the 60s to 70s range. Irregular rate and rhythm overall morphology appears to be A. fib. Lungs & Thorax: Bilateral breath sounds equal at the apex with scattered wheezes on auscultation [. The] does have some basilar rubbing and crackles. Stick on cardiac loop monitor. Abdomen: Bowel sounds normal, soft, no tenderness, no masses, no pulsatile masses. Old surgery scars. Skin: Warm, dry, no erythema, no rash. Poor turgor Back: No tenderness, no CVA tenderness. [] Extremities: No tenderness, no cyanosis, no clubbing, ROM intact, no edema. Arthritic changes. No cording appreciated Neurologic: Alert and oriented X 3, moves all extremities on request, does have distal sensory,, no focal deficits noted. [] Psychologic: Affect anxious, judgement normal, mood normal. [] (DALLAS EVANS MD) EKG: EKG: My interpretation EKG shows a a fib rhythm irregular rate and rhythm. Ventricle rate of 67 bpm. There is some anterior lateral changes. But no findings of acute STEMI with contralateral changes. Time my interpretation EKG was approximately 0009 minutes [] (DALLAS EVANS MD) Radiology/Procedures: Radiology/Procedures: [address] [address] IMAGING REPORT Signed PATIENT: DARNELL STEARNS ACCOUNT: [id number] : 1945 LOCATION: ER AGE: 76 SEX: M EXAM STATUS: REG ER ORD. PHYSICIAN: DALLAS EVANS MD REASON: Dyspnea, Elevated D-dimer PROCEDURE: CT ANGIOGRAPHY CHEST Study: CT CHEST WITH CONTRAST - PULMONARY ANGIOGRAM History: Dyspnea. Elevated d-dimer. Pulmonary embolism. Comparison: 12/22/2021 Technique: Helical CT of the chest performed after the administration of intravenous contrast and timed for angiographic evaluation of the pulmonary arteries per PE protocol. Coronal and sagittal 3D MIP reformations were obtained. One or more of the following individualized dose reduction techniques were utilized for this examination: 1. Automated exposure control 2. Adjustment of the mA and/or kV according to patient size 3. Use of iterative reconstruction technique. Findings: Pulmonary Arteries: No main, lobar or segmental pulmonary embolism. Heart/Systemic Vasculature: Multifocal calcified and noncalcified atheromatous plaque with trivessel coronary artery involvement. No aortic aneurysm or dissection. Mediastinum: No lymphadenopathy by size criteria. Lungs: Moderate emphysema. Multifocal pleuroparenchymal scarring. A solid nodule anteriorly within the right upper lobe, image 67 series 7, has increased in size now measuring 4 mm compared to 2.5 mm. Previously described new 6 mm nodule anteriorly within the left upper lobe is unchanged, image 48 series 7. Numerous additional subcentimeter pre-existing nodules are without significant change. Scattered nodular infiltrates and faint groundglass attenuation also without significant change. No confluent airspace abnormality has developed in the interim. Scattered small airway opacification. No pleural effusion. Neck/Axilla/Body Wall: No axillary adenopathy. The visualized thyroid is unremarkable. Upper Abdomen: No significant interval change. Bones: Multifocal degenerative findings. No acute or aggressive abnormality. Miscellaneous: None. IMPRESSION: 1. No main, lobar or segmental pulmonary embolism. 2. Redemonstration of moderate emphysema and numerous subcentimeter pulmonary nodules. The vast majority of nodules are unchanged to include the previously described 6 mm nodule within the left upper lobe. A small nodule within the anterior aspect of the right upper lobe is minimally larger at 4 mm compared to 3 mm. Follow-up CT chest is recommended in 6 months. 3. Chronic observations to include calcific coronary artery disease. Electronically signed by: ANISH LOMBARDI MD (01/05/2022 6:17 AM) [facility] DICTATED AND SIGNED BY: ANISH LOMBARDI MD DATE: 01/05/22 06 CC: NOAH MAYER MD; DALLAS EVANS MD; EMMANUEL BLACKWOOD MD ~ [][place] [address] IMAGING REPORT Signed PATIENT: DARNELL STEARNS ACCOUNT: [id number] : 1945 LOCATION: ER AGE: 76 SEX: M EXAM STATUS: REG ER ORD. PHYSICIAN: DALLAS EVANS MD REASON: cough, congestion, cp PROCEDURE: CHEST AP ONLY Study: XR CHEST 1V Indication: Cough. Congestion. Chest pain. Comparison: CT chest 12/22/2021; most recent chest radiograph from 10/15/2021 Findings: The cardiomediastinal silhouette is within normal limits for size. Similar hilar configuration. Device hub projects over the left hemithorax. Emphysematous changes with some pleuroparenchymal scarring. No layering effusion or pneumothorax. Aortic calcific atherosclerosis. Impression: 1. No acute radiographic abnormality of the chest. 2. Emphysema with pleuroparenchymal scarring. Electronically signed by: ANISH LOMBARDI MD (01/05/2022 1:05 AM) [facility] DICTATED AND SIGNED BY: ANISH LOMBARDI MD DATE: 01/05/22102 CC: NOAH MAYER MD; DALLAS EVANS MD ~ (DALLAS EVANS MD) Heart Score: C/O Chest Pain: Yes HEART Score for Chest Pain: HEART Score for Chest Pain Response (Comments) Value History Moderately Suspicious 1 ECG Nonspecific Repolarizatio 1 Age > 65 2 Risk Factors 1 or 2 Risk Factors 1 Troponin < Normal Limit 0 Total 5 Risk Factors: Risk Factors: DM, Current or recent (<one month) smoker, HTN, HLP, family history of CAD, obesity. Risk Scores: Score 0 - 3: 2.5% MACE over next 6 weeks - Discharge Home Score 4 - 6: 20.3% MACE over next 6 weeks - Admit for Clinical Observation Score 7 - 10: 72.7% MACE over next 6 weeks - Early Invasive Strategies (DALLAS EVANS MD) C/O Chest Pain: No (EMMANUEL BLACKWOOD MD) Course & Med Decision Making: Course & Med Decision Making Pertinent Labs and Imaging studies reviewed. (See chart for details) Patient endorsed to at shift change pending CT results. May be candidate for outpatient Eliquis treatment. 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 MDIs 2 puffs 4 times a day, prednisone 50 mg a day. Impression : 1. Chest discomfort 2. A. fib-with controlled ventricular rate 3. COPD-mild exacerbation 4. Pleural plaquing and scarring 5. History of hypertension 6. History of GERD 7. History of degenerative arthritis 8. History of esophageal strictures 9. History of traumatic brain injury 10.Elevated D-dimer - this visit 1.07 Patient continue meds as directed. 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 Patient use his breathing treatments as previously directed. Patient did take a daily aspirin. [] (DALLAS EVANS MD) Course & Med Decision Making This is a 76-year-old male with dyspnea and a cough. Ultimately CT scan of the chest was done, this is negative for evidence of pulmonary embolism or infiltrate. On reassessment patient is breathing is much better. We will discharge him with prescriptions for an albuterol inhaler as well as 3 days of prednisone. He can follow-up with his traffic lieutenant, he is stable for discharge at this time. (EMMANUEL BLACKWOOD MD) Dragon Disclaimer: Dragon Disclaimer: This electronic medical record was generated, in whole or in part, using a voice recognition dictation system. (DALLAS EVANS MD) Departure Departure: Impression: Primary Impression: COPD exacerbation Disposition: HOME / SELF CARE / HOMELESS Condition: STABLE Referrals: NOAH MAYER MD (PCP) Patient Instructions: Chronic Obstructive Pulmonary Disease Exacerbation Scripts Albuterol Sulfate (PROAIR HFA INHALER) 8.5 Gm Hfa.aer.ad 2 PUFF INH PRN Q6HRS PRN for SHORTNESS OF BREATH for 7 Days, #1 INHALER 0 Refills Prov: EMMANUEL BLACKWOOD MD 01/05/22 Prednisone (PREDNISONE) 20 Mg Tablet 60 MG PO DAILY for bronchitis for 3 Days, #9 TAB Prov: EMMANUEL BLACKWOOD MD 01/05/22 Dragmarilynn Disclaimer This chart was dictated in whole or in part using Voice Recognition software in a busy, high-work load, and often noisy Emergency Department environment. It may contain unintended and wholly unrecognized errors or omissions. (DALLAS EVANS MD) Dragon Disclaimer This chart was dictated in whole or in part using Voice Recognition software in a busy, high-work load, and often noisy Emergency Department environment. It may contain unintended and wholly unrecognized errors or omissions. (DALLAS EVANS MD) DALLAS EVANS MD Jan 05, 2022 00:14 EMMANUEL BLACKWOOD MD Jan 05, 2022 06:43
--- NOTE | 2022-01-05 00:19 | EKG ---
[address] [address] Test Date: 2022-01-05 Test Time: 00:09:27 Pat Name: DARNELL STEARNS Department: Room: Gender: M Crane [place]er: : 1945 Requested By: DALLAS EVANS Order Number: [id number] Reading MD: Uli Sauceda Measurements Intervals Stella Rate: 67 P: SC: QRS: 43 QRSD: 94 T: 62 QT: 394 QTc: 419 Interpretive Statements PROBABLE SINUS RHYTHM MILD NON SPECIFIC ST CHANGES Electronically Signed On 01-07-2022 17:09:55 CDT by Uli Sauceda
[2022-01-05] MEDS ORDERED: ALBUTEROL SULFATE 8GM INHALER. INH ONE (00:30)
[2022-01-05 00:54] LABS: INFLUENZA A PATIENT NEGATIVE (NEGATIVE); INFLUENZA B PATIENT NEGATIVE (NEGATIVE)
[2022-01-05] MEDS ORDERED: methylPREDNISolone SOD SUCC PF 125 MG/2 ML VIAL. IV ONE (01:00)
[2022-01-05] MEDS ORDERED: ENOXAPARIN ** NOTE DOSE ** SYRINGE SQ ONE (01:00)
--- NOTE | 2022-01-05 01:07 | RAD ---
Study: XR CHEST 1V Indication: Cough. Congestion. Chest pain. Comparison: CT chest 12/22/2021; most recent chest radiograph from 10/15/2021 Findings: The cardiomediastinal silhouette is within normal limits for size. Similar hilar configuration. Device hub projects over the left hemithorax. Emphysematous changes with some pleuroparenchymal scarr ing. No layering effusion or pneumothorax. Aortic calcific atherosclerosis. Impression: 1. No acute radiographic abnormality of the chest. 2. Emphysema with pleuroparenchymal scarring. Electronically signed by: ANISH LOMBARDI MD (01/05/2022 1:05 AM) [facility]
[2022-01-05 01:51] LABS: BASO # 0.1 x10^3/uL (0.0-0.2); BASO % 1 % (0-3); EOS # 0.3 x10^3/uL (0.0-0.7); EOS % 3 % (0-3); HEMATOCRIT 40.6 % (39.0-53.0); HEMOGLOBIN 13.6 g/dL (13.0-17.5); LYMPH # 1.5 x10^3/uL (1.0-4.8); LYMPH % 16 % (24-48); MEAN CORPUSCULAR HEMOGLOBIN 29 pg (25-35); MEAN CORPUSCULAR HGB CONC 34 g/dL (31-37); MEAN CORPUSCULAR VOLUME 88 fL (79-100); MONO % 10 % (0-9); NEUT # 6.7 x10^3uL (1.8-7.7); NEUT % 70 % (31-73); PLATELET COUNT 225 x10^3/uL (140-400); RED BLOOD COUNT 4.64 x10^6/uL (4.30-5.70); RED CELL DISTRIBUTION WIDTH 14.1 % (11.5-14.5); WHITE BLOOD COUNT 9.5 x10^3/uL (4.0-11.0)
[2022-01-05 02:03] LABS: CALCIUM 9.4 mg/dL (8.5-10.1); CREATININE 1.2 mg/dL (0.7-1.3); GFR 58.6; POTASSIUM 4.3 mmol/L (3.5-5.1)
[2022-01-05 02:15] LABS: ALBUMIN 3.7 g/dL (3.4-5.0); DIRECT BILIRUBIN 0.1 mg/dL (0.0-0.2); MAGNESIUM 1.6 mg/dL (1.8-2.4); TOTAL BILIRUBIN 0.3 mg/dL (0.2-1.0); TOTAL PROTEIN 6.5 g/dL (6.4-8.2)
[2022-01-05] MEDS ORDERED: CONTRAST GIVEN. MC PRN (05:30)
[2022-01-05] MEDS ORDERED: IOHEXOL 350 MG/ML 100 ML VIAL. IV ONE (05:30)
[2022-01-05 06:10] LABS: AMPHETAMINE/METHAMPHETAMINE NEG (NEG); BARBITURATES NEG (NEG); BENZODIAZEPINES NEG (NEG); CANNABINOIDS NEG (NEG); COCAINE NEG (NEG); METHADONE NEG (NEG); PHENCYCLIDINE NEG (NEG)
[2022-01-05 06:15] LABS: CLARITY,URINE CLEAR; COLOR,URINE YELLOW; GLUCOSE,URINE NEG (NEG); NITRITE,URINE NEG (NEG); RBC,URINE 0 /HPF (0-2); UROBILINOGEN,URINE 0.2 mg/dL (0.2 mg/dL)
[2022-01-05 06:16] LABS: BACTERIA,URINE 0 /HPF (0-FEW); SQUAMOUS EPITHELIAL CELL,UR OCC /LPF; WBC,URINE 0 /HPF (0-4)
--- NOTE | 2022-01-05 06:20 | RAD ---
Study: CT CHEST WITH CONTRAST - PULMONARY ANGIOGRAM History: Dyspnea. Elevated d-dimer. Pulmonary embolism. Comparison: 12/22/2021 Technique: Helical CT of the chest performed after the administration of intravenous contrast and ti med for angiographic evaluation of the pulmonary arteries per PE protocol. Coronal and sagittal 3D MT P reformations were obtained. One or more of the following individualized dose reduction techniques were utilized for this examinat ion: 1. Automated exposure control 2. Adjustment of the mA and/or kV according to patient size 3. Use of iterative reconstruction technique. Findings: Pulmonary Arteries: No main, lobar or segmental pulmonary embolism. Heart/Systemic Vasculature: Multifocal calcified and noncalcified atheromatous plaque with trivessel coronary artery involvement. No aortic aneurysm or dissection. Mediastinum: No lymphadenopathy by size criteria. Lungs: Moderate emphysema. Multifocal pleuroparenchymal scarring. A solid nodule anteriorly within th e right upper lobe, image 67 series 7, has increased in size now measuring 4 mm compared to 2.5 mm. P reviously described new 6 mm nodule anteriorly within the left upper lobe is unchanged, image 48 seri es 7. Numerous additional subcentimeter pre-existing nodules are without significant change. Scattere d nodular infiltrates and faint groundglass attenuation also without significant change. No confluent airspace abnormality has developed in the interim. Scattered small airway opacification. No pleural effusion. Neck/Axilla/Body Wall: No axillary adenopathy. The visualized thyroid is unremarkable. Upper Abdomen: No significant interval change. Bones: Multifocal degenerative findings. No acute or aggressive abnormality. Miscellaneous: None. IMPRESSION: 1. No main, lobar or segmental pulmonary embolism. 2. Redemonstration of moderate emphysema and numerous subcentimeter pulmonary nodules. The vast cira rity of nodules are unchanged to include the previously described 6 mm nodule within the left upper l obe. A small nodule within the anterior aspect of the right upper lobe is minimally larger at 4 mm co mpared to 3 mm. Follow-up CT chest is recommended in 6 months. 3. Chronic observations to include calcific coronary artery disease. Electronically signed by: ANISH LOMBARDI MD (01/05/2022 6:17 AM) [facility]
[2022-01-05] MEDS ORDERED: ALBU2.5V8 INH (06:43)
[2022-01-05] MEDS ORDERED: PRED20TA PO (06:43)
[2022-01-05 06:59] VITALS: BP 139/89
== END 2022-01-05 06:59 | disposition home or self-care (01) ==
LOC: ER 23:50
DX: J44.1 Chronic obstructive pulmonary disease with (acute) exacerbation (principal); I48.91 Unspecified atrial fibrillation; R07.89 Other chest pain; I10 Essential (primary) hypertension; K21.9 Gastro-esophageal reflux disease without esophagitis; M19.90 Unspecified osteoarthritis, unspecified site; R79.1 Abnormal coagulation profile; Z87.891 Personal history of nicotine dependence; Z87.820 Personal history of traumatic brain injury; Z20.822 Contact with and (suspected) exposure to COVID-19
CPT/HCPCS: 36415; 71045; 71275; 80048; 80076; 80307; 81001; 82550; 83690; 83735; 83880; 84443; 84484; 85025; 85379; 85610; 85730; 87428; 93005; 94640; 96372; 96374; 99285; J1650; J2930; 94664

== ENCOUNTER → 2022-01-27 | Outpatient (CLI) | payer MEDICARE, OTHER ==
[2022-01-05 06:59] VITALS: BP 139/89
[~2022-01-27] MED LIST changes: +ALBU2.5V8 INH; +PRED20TA PO
--- NOTE | 2022-01-27 16:08 | CARD ---
MR#: [id number] Date of Study: 01/27/2022 Ordering Physician: MERRICK GALVEZ, Referring Physician: MERRICK GALVEZ, Tech: Biju Zambrano [facility] APPROVED REPORT EXAM: Two-dimensional and M-mode echocardiogram with Doppler and color Doppler. Other Information Quality : AverageHR: 58bpm Rhythm : NSR INDICATION COPD Dyspnea Syncope RISK FACTORS Smoking 2D DIMENSIONS Left Atrium(2D)3.2 (1.6-4.0cm)IVSd1.2 (0.7-1.1cm) Aortic Root(2D)3.8 (2.0-3.7cm)LVDd5.3 (3.9-5.9cm) LVOT Diameter2.1 (1.8-2.4cm)PWd1.2 (0.7-1.1cm) LVDs3.7 (2.5-4.0cm)FS (%) 30.1 % SV78.0 mlLVEF(%)57.0 (>50%) Aortic Valve AoV Peak Eris.104.5cm/sAoV VTI19.9cm AO Peak GR.4.4mmHgLVOT Peak Eris.100.2cm/s LVOT VTI 19.07cmAO Mean GR.2mmHg KENDAL (VMAX)3.77wv9UPE (VTI)3.33cm2 Mitral Valve MV E Mehjnhch30.3cm/sMV E Peak Gr.3mmHg MV DECEL [id number] A Bwxxtbcs60.5cm/s MV E Mean Gr.1mmHgE/A Ratio0.7 Pulmonary Valve PV Peak Gmlpvuhp501.2cm/sPV Peak Grad.6mmHg Tricuspid Valve TR P. Iqjbtrot385bm/sTR Peak Gr.22mmHg Pulmonary Vein S1 Bsqokylu80.6cm/sD2 Xnspiikz22.5cm/s LEFT VENTRICLE The left ventricle is normal size. There is mild concentric left ventricular hypertrophy. The left ve ntricular systolic function is normal. The ejection fraction is 60%. There is normal LV segmental wal l motion. Transmitral Doppler flow pattern is Grade I-abnormal relaxation pattern. No left ventricle thrombus noted on this study. There is no ventricular septal defect visualized. There is no left vent ricular aneurysm. There is no mass noted in the left ventricle. RIGHT VENTRICLE The right ventricle is normal size. There is normal right ventricular wall thickness. The right ventr icular systolic function is normal. ATRIA The left atrium size is normal. The right atrium size is normal. The interatrial septum is intact wit h no evidence for an atrial septal defect or patent foramen ovale as noted on 2-D or Doppler imaging. AORTIC VALVE The aortic valve is mildly sclerotic. Doppler and Color Flow revealed no significant aortic regurgita tion. There is no significant aortic valvular stenosis. There is no aortic valvular vegetation. MITRAL VALVE The mitral valve is normal in structure and function. There is no evidence of mitral valve prolapse. There is no mitral valve stenosis. Doppler and Color Flow revealed no mitral valve regurgitation note d. TRICUSPID VALVE The tricuspid valve is normal in structure and function. Doppler and Color Flow revealed trace tricus pid regurgitation. The PA pressure was estimated at 26 mmHg. There is no tricuspid valve prolapse or vegetation. There is no tricuspid valve stenosis. PULMONIC VALVE The pulmonary valve is normal in structure and function. Doppler and Color Flow revealed no pulmonic valvular regurgitation. There is no pulmonic valvular stenosis. GREAT VESSELS The aortic root is normal in size. The ascending aorta is normal in size. The pulmonary artery is nor mal. The IVC is normal in size and collapses >50% with inspiration. PERICARDIAL EFFUSION There is no pleural effusion. There is no evidence of significant pericardial effusion. Critical Notification Critical Value: No <Conclusion> The left ventricular systolic function is normal. The ejection fraction is 60%. There is normal LV segmental wall motion. Transmitral Doppler flow pattern is Grade I-abnormal relaxation pattern. Doppler and Color Flow revealed trace tricuspid regurgitation. The PA pressure was estimated at 26 mmHg. There is no evidence of significant pericardial effusion. Signed by : Declan Padgett, Electronically Approved : 01/27/2022 16:08:22
== END ==
LOC: ECHO 13:14
PROVIDERS: ATTEND Internal Medicine Cardiovascular Disease
DX: I35.1 Nonrheumatic aortic (valve) insufficiency (principal); I51.7 Cardiomegaly; R55 Syncope and collapse
CPT/HCPCS: 93306